=== PATIENT | male | born 1950 | race Caucasian/White ===

== ENCOUNTER → 2018-03-14 14:44 | Outpatient (CLI) | payer MEDICARE, OTHER, SELFPAY ==
--- NOTE | 2018-03-14 | DI.RAD.S_ITS ---
PROCEDURE: XR CHEST 2V INDICATIONS: LUNG NODULE TECHNIQUE: 2 views of the chest were acquired. COMPARISON: [facility], CHEST 1 VIEW, 05/26/2016, 15:01. [facility], CHEST 2 VIEW, 05/04/2017, 9:26. [facility], CHEST 2 VIEW, 11/11/2016, 9:08. [facility], CHEST 1 VIEW, 06/25/2016, 9:39. FINDINGS: Surgical changes and devices: Stable time. Lungs and pleura: No pleural effusions or pneumothorax. Lungs are clear. Mediastinum: Mediastinal contours are normal. Heart size is normal. Bones and chest wall: No suspicious bony abnormalities. Soft tissues appear unremarkable. IMPRESSION: No nodule identified on the left. Right upper lobe nodule seen on the right present also 05/26/16, stable appearing. Dictated by: Brooks Bejarano M.D. on 03/14/2018 at 15:05 Approved by: Brooks Bejarano M.D. on 03/14/2018 at 15:06
== END ==
PROVIDERS: Family Provider Family Medicine; PCP Family Medicine; Visit Provider Family Medicine
DX: R91.1 Solitary pulmonary nodule (principal)
CPT/HCPCS: 71046

== ENCOUNTER 2018-08-02 06:32 | Day surgery (SDC) | payer MEDICARE, OTHER, SELFPAY ==
[2018-08-02] VITALS (10 sets, daily range): BP systolic 99–156; BP diastolic 54–91; PULSE 59–76; RESP 12–18; TEMP 36.1–36.6; O2SAT 94–100; BMI 29.0
[2018-08-02] MEDS: LACTATED RINGERS 1,000 ML 42 ML IV ×2 (07:39→09:26)
--- NOTE | 2018-08-02 08:09 | PM.HP.1 ---
History of Present Illness Date Patient Seen: 08/02/18 Time Patient Seen: 08:00 Chief complaint: [id number] Narrative: Patient is gentleman here for repair of left inguinal hernia. He has local symptoms. Patient History Medical History Coronary heart disease (Chronic) Elevated cholesterol (Chronic) Hypertension (Chronic) History of herniated intervertebral disc (Resolved) Surgical History History of heart artery stent (Resolved) Status post aorto-coronary artery bypass graft (Resolved) Social History marital status: household members: spouse occupational status: employed Smoking Status: Never smoker alcohol intake: current substance use type: does not use Family & Social History Social History: household members spouse Tobacco & Substance use: Smoking Status Never smoker alcohol intake current Meds Home Medications Medication Instructions Recorded Confirmed Type aspirin 81 mg PO QDAY #0 05/26/16 08/02/18 History MULTIVITAMIN/MINERALS (ICAPS PLUS) 1 tab PO QDAY #0 06/25/16 03/21/18 History atorvastatin [Lipitor] 40 mg PO QDAY #0 06/25/16 08/02/18 History oxycodone-acetaminophen [Percocet] 1 - 2 tab PO Q4HP PRN #0 06/25/16 History polyethylene glycol 3350 [Miralax] 17 gm PO QDAYP PRN #0 06/25/16 History lisinopril 10 mg tablet 5 mg PO BID #0 tab 03/21/18 08/02/18 History metoprolol tartrate 25 mg tablet 50 mg PO BID #0 tab 03/21/18 08/02/18 History Allergies Allergy/AdvReac Type Severity Reaction Status Date / Time latex AdvReac itching, Verified 03/21/18 10: redness No Known Allergies Allergy Uncoded 03/21/18 10:08 Review of Systems Review of Systems Patient denies any chest pain or her problems recently. His treated for hypertension. No breathing issues. No black or bloody bowel movements. No seizures or blackouts. Exam Vital Signs (past 8 hours): - 08/02/18 07:22 Temperature 97.7 F Pulse Rate 76 Respiratory Rate 16 Blood Pressure 156/82 H Pulse Oximetry 100 Oxygen Delivery Method Room Air Narrative Exam Narrative: Operative no apparent distress. Lungs are clear to auscultation. Heart regular rate and rhythm without murmur gallop. Abdomen is soft nontender without masses. Reducible left inguinal hernia. He states that he has had repair in the side but I cannot see a scar. Assessment & Plan Assessment & Plan narrative: Patient with a left inguinal hernia that may be recurrence. I discussed the operation with him including risks of the use of mesh. He appears to understand and wishes to proceed
[2018-08-02] MEDS: CEFAZOLIN 2 GM/100 ML FROZ.PIGGY IV (08:10)
--- NOTE | 2018-08-02 08:12 | PM.PREOP ---
Pre-operative Note Interval Note History & Physical reviewed/Exam performed by Physician: Yes Changes to H&P: No
--- NOTE | 2018-08-02 08:29 | SUR.OPER ---
Supine on padded OR bed, head on pillow, arms secured on padded arm boards at <90 degrees abduction, legs uncrossed, safety belt at thigh, tape over blanket over lower legs.
[2018-08-02] MEDS: BUPIVACAINE 0.5% (PF) VIAL 30 ML INJ (08:35)
--- NOTE | 2018-08-02 10:30 | P.OP_ITS ---
Operative Date/Time/Diagnoses Date of procedure: 08/02/18 Time of procedure: 10:09 Pre-op diagnosis: Left inguinal hernia reducible Post-op diagnosis: same (Direct and large indirect component) Procedure & Clinicians Procedure: Repair with plug and patch technique Same procedure as scheduled: Yes Indications: Symptomatic left inguinal hernia Surgeon: Jr Murray Click Yes if Unassisted: Yes Anesthesia Type: General Operative Notes Findings: The patient was placed supine on the operating room table and underwent general LMA anesthesia. He was prepped and draped in the usual fashion. A transverse incision was made overlying the internal ring and carried down to the level of the external oblique. The external oblique was opened parallel with its fibers through the external ring. The cord structures were attempted to be elevated. The large contents within the hernia made this a difficult maneuver and I decided to open the cremaster and reduce the hernia contents 1st. The cremaster was opened proximally and search made for an indirect sac. The very large sac was identified and I opened it anteriorly. The sac contained a large amount of colon which I reduced. I then the sac from the cord structures. This was a very challenging maneuver due to the fact that there was a large amount of fat within the wall of the hernia medially. I dissected this off the peritoneal lining and used a 2 0 pursestring of silk to close the defect. I transected the sac distal and over sewed the end with the same 2 0 silk. The stump was allowed to retract. A large plug was then placed in the defect and this reduced not only the stump of the hernia but also the fat that had been in the wall. I tacked it into place with interrupted 0 Tycron sutures. The cremaster was closed with interrupted 3 0 Vicryl.. The floor was examined and was found to be attenuated. I decided to reinforce it by suturing medial transversalis to the ileopubic tract and edge of the inguinal ligament. T his was done with [id number] 0 Tycron sutures. A patch was placed across the floor and tacked at the pubic tubercle, the posterior lamella of the anterior rectus sheath, the ilioinguinal ligament, and superior lateral to the cord. The opening was modified as necessary to prevent tight constriction of the cord. Sutures of 0 Tycron were used to secure the mesh. The external oblique was closed with a running 3 0 Polysorb. The subcu was closed with interrupted 3 0 Polysorb. The skin was closed with a running 4 0 Polysorb subcuticular stitch and Steri-Strips. Dressing was applied, the patient was awakened, and the patient was taken to the recovery area in good condition. Closure Type: primary Specimen(s): none sent Prosthetic devices, grafts, tissues, transplants, or devices: Mesh Estimated Blood Loss (mL): 10 Procedure in detail: See findings above. Dictation placed there. Complications: none Condition: stable Disposition: PACU Plan for aftercare: Follow-up in the office
== END 2018-08-02 11:30 | disposition home or self-care (01) ==
PROVIDERS: Family Provider Family Medicine; PCP Family Medicine; Visit Provider Specialist
PROC: (CPT 49505; principal; 2018-08-02 07:45)
DX: K40.90 Unilateral inguinal hernia, without obstruction or gangrene, not specified as recurrent (principal); I25.10 Atherosclerotic heart disease of native coronary artery without angina pectoris; E78.00 Pure hypercholesterolemia, unspecified; I10 Essential (primary) hypertension; Z95.1 Presence of aortocoronary bypass graft
CPT/HCPCS: 49505; C1781; J0690; J1100; J2250; J2405; J2704; J3010

== ENCOUNTER 2019-08-14 16:28 | Observation (INO) | payer MEDICARE, OTHER, SELFPAY ==
[2019-08-14] VITALS (8 sets, daily range): BP systolic 137–161; BP diastolic 75–90; PULSE 68–79; RESP 15–17; TEMP 36–36.4; O2SAT 96–100; BMI 29.7
--- NOTE | 2019-08-14 16:46 | ED.NEUROSD ---
HPI - Neuro Symptoms/Deficit <Aydee Felder MD - Last Filed: 08/16/19 03:13> General Chief Complaint: Neuro Symptoms/Deficit Stated Complaint: thinks he had a mini stroke Time Seen by Provider: 08/14/19 16:46 Mode of arrival: Ambulatory History of Present Illness HPI Narrative: 69-year-old gentleman with a history of cardiac bypass and stent the following year, hypertension hyperlipidemia who presents after a 15 minutes episode this afternoon where he was acutely confused with word-finding difficulties. He notes that 230 this afternoon he was completely normal he distinctly remember signing a check. His noted that he was taking a nap in front of his computer at about 3:00 a.m. in at 3:30 a.m. she awoke him from the nap and he was dramatically confused, did not recognize her at all with word salad type findings that took approximately 15 minutes to resolve. Both the patient and his identified this as significantly abnormal and far more than one would expect even if being awoken from a deep sleep. There was no associated motor or sensory findings with this. No description of seizure-like activity. He does note that he has been more tired over the last couple of days, he was at a conference and was surprised that he could not walk quite as fast is many of the other people at the meeting, but attributed that to travel and fatigue. Since coming home 3 days ago he feels that he has been at his baseline without fever, cough, cold, chills, chest pain lower extremity edema, orthopnea, vomiting or diarrhea. On Anticoagulants: No Related Data Home Medications Medication Instructions Recorded Confirmed MULTIVITAMIN/MINERALS (ICAPS PLUS) 1 tab PO QDAY #0 06/25/16 08/15/19 atorvastatin [Lipitor] 40 mg PO DAILY #0 06/25/16 08/14/19 polyethylene glycol 3350 [Miralax] 17 gm PO QDAYP PRN #0 06/25/16 08/15/19 lisinopril 10 mg tablet 10 mg PO BID #0 tab 03/21/18 08/14/19 metoprolol succinate 50 mg PO BID 08/14/19 08/14/19 nitroglycerin 0.4 mg SUBLINGUAL PRN PRN 08/14/19 08/14/19 Previous Rx's Medication Instructions Recorded aspirin 81 mg PO QDAY #2 tab 08/15/19 Allergies Allergy/AdvReac Type Severity Reaction Status Date / Time No Known Drug Intolerances Allergy Verified 08/14/19 20:51 latex AdvReac itching, Verified 08/14/19 20:51 redness Review of Systems <Aydee Felder MD - Last Filed: 08/16/19 03:13> Review of Systems Narrative: All systems reviewed and are unremarkable except as noted in HPI and below Patient History <Aydee Felder MD - Last Filed: 08/16/19 03:13> Medical History Coronary heart disease (Chronic) Elevated cholesterol (Chronic) History of herniated intervertebral disc (Resolved) Hypertension (Chronic) Surgical History History of heart artery stent (Resolved) Status post aorto-coronary artery bypass graft (Resolved) Social History marital status: household members: spouse occupational status: employed Smoking Status: Never smoker alcohol intake: current substance use type: does not use Smoking Status: Never smoker alcohol intake frequency: 0-2 drinks per day Alcohol type: beer Substance Use Type: does not use Exam <Aydee Felder MD - Last Filed: 08/16/19 03:13> Narrative Exam Narrative: General: Healthy appearing, in no acute distress. Able to give a complete and coherent history. Well-nourished well-developed HEENT: Moist mucous membranes, normal sclera with reactive pupils, Neck: No JVD, supple Respiratory: Lungs are clear to auscultation, no wheezing no rales no rhonchi. Full and symmetrical air movement Cardiac: Regular rate and rhythm no murmurs no bruits Abdomen: Soft nontender good bowel tones, no flank pain Skin: Warm and dry, no rashes Neurologic: Grossly neurologically intact with no obvious asymmetries or abnormalities, speech fluency in cognitive interaction is completely appropriate Extremities: No trauma, well perfused Psych: Cooperative, appropriate insight and affect Initial Vital Signs Initial Vital Signs: Vital Signs Temperature 96.8 F L 08/14/19 16:32 Pulse Rate 70 08/14/19 16:32 Respiratory Rate 17 08/14/19 16:32 Blood Pressure 161/80 H 08/14/19 16:32 Pulse Oximetry 100 08/14/19 16:32 <Peg Horan DO - Last Filed: 08/15/19 03:43> Initial Vital Signs Initial Vital Signs: Vital Signs Temperature 96.8 F L 08/14/19 16:32 Pulse Rate 70 08/14/19 16:32 Respiratory Rate 17 08/14/19 16:32 Blood Pressure 161/80 H 08/14/19 16:32 Pulse Oximetry 100 08/14/19 16:32 Course <Aydee Felder MD - Last Filed: 08/16/19 03:13> Orders Ordered: Discontinued Medications Acetaminophen (Tylenol) 650 mg PO Q6HR PRN PRN Reason: Fever/Mild Pain (1-3) Aspirin (Aspirin Chew) 324 mg PO NOW ONE Stop: 08/14/19 20:06 Last Admin: 08/14/19 20:59 Dose: 324 mg Documented by: JAZ Atorvastatin Calcium (Lipitor) 40 mg PO NOW ONE Stop: 08/14/19 20:06 Last Admin: 08/14/19 20:59 Dose: 40 mg Documented by: JAZ Sodium Chloride (Normal Saline 0.9%) 1,000 mls @ 150 mls/hr IV CONT [facility] Last Admin: 08/15/19 05:23 Dose: 150 mls/hr Documented by: Infusion: 08/15/19 05:23 Dose: 150 mls/hr Documented by: Admin: 08/14/19 22:42 Dose: 150 mls/hr Documented by: ELLYN Sodium Chloride (Normal Saline 0.9%) 1,000 mls @ 1,000 mls/hr IV BOLUS ONE Stop: 08/14/19 18:21 Last Infusion: 08/14/19 19:46 Dose: 0 mls/hr Documented by: Admin: 08/14/19 17:54 Dose: 1,000 mls/hr Documented by: MORELIA Lisinopril (Zestril) 10 mg PO BID [facility] Last Admin: 08/15/19 09:49 Dose: 10 mg Documented by: Admin: 08/14/19 21:02 Dose: 10 mg Documented by: JAZ Metoprolol Tartrate (Lopressor) 50 mg PO BID [facility] Last Admin: 08/15/19 09:49 Dose: 50 mg Documented by: Admin: 08/14/19 21:01 Dose: 50 mg Documented by: JAZ Vital Signs Vital signs: Vital Signs - 8 hr 08/14/19 20:30 Pulse Rate 71 Respiratory Rate 15 Pulse Oximetry 98 <Peg Horan, DO - Last Filed: 08/15/19 03:43> Orders Ordered: Discontinued Medications Acetaminophen (Tylenol) 650 mg PO Q6HR PRN PRN Reason: Fever/Mild Pain (1-3) Aspirin (Aspirin Chew) 324 mg PO NOW ONE Stop: 08/14/19 20:06 Last Admin: 08/14/19 20:59 Dose: 324 mg Documented by: JAZ Atorvastatin Calcium (Lipitor) 40 mg PO NOW ONE Stop: 08/14/19 20:06 Last Admin: 08/14/19 20:59 Dose: 40 mg Documented by: JAZ Sodium Chloride (Normal Saline 0.9%) 1,000 mls @ 150 mls/hr IV CONT [facility] Last Admin: 08/15/19 05:23 Dose: 150 mls/hr Documented by: Infusion: 08/15/19 05:23 Dose: 150 mls/hr Documented by: Admin: 08/14/19 22:42 Dose: 150 mls/hr Documented by: ELLYN Sodium Chloride (Normal Saline 0.9%) 1,000 mls @ 1,000 mls/hr IV BOLUS ONE Stop: 08/14/19 18:21 Last Infusion: 08/14/19 19:46 Dose: 0 mls/hr Documented by: Admin: 08/14/19 17:54 Dose: 1,000 mls/hr Documented by: MORELIA Lisinopril (Zestril) 10 mg PO BID [facility] Last Admin: 08/15/19 09:49 Dose: 10 mg Documented by: Admin: 08/14/19 21:02 Dose: 10 mg Documented by: JAZ Metoprolol Tartrate (Lopressor) 50 mg PO BID [facility] Last Admin: 08/15/19 09:49 Dose: 50 mg Documented by: Admin: 03/11/20 21:01 Dose: 50 mg Documented by: JAZ Vital Signs Vital signs: Vital Signs - 8 hr 08/14/19 20:30 Pulse Rate 71 Respiratory Rate 15 Pulse Oximetry 98 MDM - Neuro Symptoms/Deficit <Aydee Felder MD - Last Filed: 08/16/19 03:13> Medical Records Attestation: I reviewed the patient's medical records. Lab Data Attestation: I reviewed the patient's lab results. Result diagrams: 08/15/19 05:47 08/15/19 05:47 Labs: Lab Results 08/14/19 08/14/19 08/14/19 Range/Units 17:20 17:20 17:20 WBC 8.1 (4.5-11.0) X10^3/uL RBC 4.74 (4.5-5.9) X10^6/uL Hgb 16.2 (13.5-17.5) g/dL Hct 46.8 (41-53) % MCV 98.7 (80-100) fL MCH 34.2 H (26-34) PG MCHC 34.6 (30-36) % RDW 12.5 (11.6-14.8) % Plt Count 147 L (150-400) X10^3/uL Neut % (Auto) 70.2 (50-75) % Lymph % (Auto) 16.3 L (25-40) % [place] % (Auto) 11.0 (3-14) % Eos % (Auto) 2.0 (2-4) % Baso % (Auto) 0.5 (0-2) % Neut # (Auto) 5700 (8397-0717) /uL Lymph # (Auto) 1300 (2366-9782) /uL [place] # (Auto) 900 (0-900) /uL Eos # (Auto) 200 (0-450) /uL Baso # (Auto) 0 (0-100) /uL PT 11.8 (10.1-12.7) SECONDS INR 1.0 (0.9-1.3) APTT 32 (26.4-36.2) SECONDS Sodium 136 L (137-145) mmol/L Potassium 4.2 (3.4-5.1) mmol/L Chloride 99 (98-107) mmol/L Carbon Dioxide 28 (22-32) mmol/L BUN 13 (9-20) mg/dL Creatinine 0.77 (0.66-1.25) mg/dL Estimated GFR > 60.0 (>60) mL/min BUN/Creatinine Ratio 16.9 (6-22) Glucose 85 (80-110) mg/dL Calcium 9.2 (8.4-10.2) mg/dL Total Bilirubin 0.4 (0.2-1.3) mg/dL AST 38 (17-59) IU/L ALT 35 (<50) IU/L Alkaline Phosphatase 80 (38-126) U/L Total Creatine Kinase (55-170) U/L CK-MB (CK-2) (<2.37) ng/mL CK-MB (CK-2) Rel Index (1.5-5.0) % Troponin I (0.01-0.034) ng/mL Total Protein 7.7 (6.3-8.2) g/dL Albumin 4.5 (3.5-5.0) g/dL Globulin 3.2 (1.7-4.1) g/dL Albumin/Globulin Ratio 1.4 (1.0-2.8) /04/24 Range/Units 17:20 WBC (4.5-11.0) X10^3/uL RBC (4.5-5.9) X10^6/uL Hgb (13.5-17.5) g/dL Hct (41-53) % MCV (80-100) fL MCH (26-34) PG MCHC (30-36) % RDW (11.6-14.8) % Plt Count (150-400) X10^3/uL Neut % (Auto) (50-75) % Lymph % (Auto) (25-40) % [place] % (Auto) (3-14) % Eos % (Auto) (2-4) % Baso % (Auto) (0-2) % Neut # (Auto) (3323-5879) /uL Lymph # (Auto) (7197-7441) /uL [place] # (Auto) (0-900) /uL Eos # (Auto) (0-450) /uL Baso # (Auto) (0-100) /uL PT (10.1-12.7) SECONDS INR (0.9-1.3) APTT (26.4-36.2) SECONDS Sodium (137-145) mmol/L Potassium (3.4-5.1) mmol/L Chloride (98-107) mmol/L Carbon Dioxide (22-32) mmol/L BUN (9-20) mg/dL Creatinine (0.66-1.25) mg/dL Estimated GFR (>60) mL/min BUN/Creatinine Ratio (6-22) Glucose (80-110) mg/dL Calcium (8.4-10.2) mg/dL Total Bilirubin (0.2-1.3) mg/dL AST (17-59) IU/L ALT (<50) IU/L Alkaline Phosphatase (38-126) U/L Total Creatine Kinase 225 H (55-170) U/L CK-MB (CK-2) 5.16 H (<2.37) ng/mL CK-MB (CK-2) Rel Index 2.3 (1.5-5.0) % Troponin I < 0.012 (0.01-0.034) ng/mL Total Protein (6.3-8.2) g/dL Albumin (3.5-5.0) g/dL Globulin (1.7-4.1) g/dL Albumin/Globulin Ratio (1.0-2.8) ECG Data Attestation: I personally reviewed and interpreted this ECG as follows: Interpretation: Sinus rhythm at a rate of 72 Left anterior fascicular block Left axis deviation No acute ischemic changes MDM Narrative Medical decision making narrative: [address] No acute intracranial bleed MRI pending, in the absence of acute findings on MRI, I believe it is safe to say this 15 minutes episode of acute confusion is not secondary to a life-threatening etiology and the patient will be safe for discharge. Care is transferred to Dr. Horan for follow-up after MRI <Peg Horan, - Last Filed: 08/15/19 03:43> Lab Data Attestation: I reviewed the patient's lab results. Labs: Lab Results 08/14/19 08/14/19 08/14/19 Range/Units 17:20 17:20 17:20 WBC 8.1 (4.5-11.0) X10^3/uL RBC 4.74 (4.5-5.9) X10^6/uL Hgb 16.2 (13.5-17.5) g/dL Hct 46.8 (41-53) % MCV 98.7 (80-100) fL MCH 34.2 H (26-34) PG MCHC 34.6 (30-36) % RDW 12.5 (11.6-14.8) % Plt Count 147 L (150-400) X10^3/uL Neut % (Auto) 70.2 (50-75) % Lymph % (Auto) 16.3 L (25-40) % [place] % (Auto) 11.0 (3-14) % Eos % (Auto) 2.0 (2-4) % Baso % (Auto) 0.5 (0-2) % Neut # (Auto) 5700 (2663-4951) /uL Lymph # (Auto) 1300 (5419-8047) /uL [place] # (Auto) 900 (0-900) /uL Eos # (Auto) 200 (0-450) /uL Baso # (Auto) 0 (0-100) /uL PT 11.8 (10.1-12.7) SECONDS INR 1.0 (0.9-1.3) APTT 32 (26.4-36.2) SECONDS Sodium 136 L (137-145) mmol/L Potassium 4.2 (3.4-5.1) mmol/L Chloride 99 (98-107) mmol/L Carbon Dioxide 28 (22-32) mmol/L BUN 13 (9-20) mg/dL Creatinine 0.77 (0.66-1.25) mg/dL Estimated GFR > 60.0 (>60) mL/min BUN/Creatinine Ratio 16.9 (6-22) Glucose 85 (80-110) mg/dL Calcium 9.2 (8.4-10.2) mg/dL Total Bilirubin 0.4 (0.2-1.3) mg/dL AST 38 (17-59) IU/L ALT 35 (<50) IU/L Alkaline Phosphatase 80 (38-126) U/L Total Creatine Kinase (55-170) U/L CK-MB (CK-2) (<2.37) ng/mL CK-MB (CK-2) Rel Index (1.5-5.0) % Troponin I (0.01-0.034) ng/mL Total Protein 7.7 (6.3-8.2) g/dL Albumin 4.5 (3.5-5.0) g/dL Globulin 3.2 (1.7-4.1) g/dL Albumin/Globulin Ratio 1.4 (1.0-2.8) 08/14/19 Range/Units 17:20 WBC (4.5-11.0) X10^3/uL RBC (4.5-5.9) X10^6/uL Hgb (13.5-17.5) g/dL Hct (41-53) % MCV (80-100) fL MCH (26-34) PG MCHC (30-36) % RDW (11.6-14.8) % Plt Count (150-400) X10^3/uL Neut % (Auto) (50-75) % Lymph % (Auto) (25-40) % [place] % (Auto) (3-14) % Eos % (Auto) (2-4) % Baso % (Auto) (0-2) % Neut # (Auto) (5083-2316) /uL Lymph # (Auto) (9930-0374) /uL [place] # (Auto) (0-900) /uL Eos # (Auto) (0-450) /uL Baso # (Auto) (0-100) /uL PT (10.1-12.7) SECONDS INR (0.9-1.3) APTT (26.4-36.2) SECONDS Sodium (137-145) mmol/L Potassium (3.4-5.1) mmol/L Chloride (98-107) mmol/L Carbon Dioxide (22-32) mmol/L BUN (9-20) mg/dL Creatinine (0.66-1.25) mg/dL Estimated GFR (>60) mL/min BUN/Creatinine Ratio (6-22) Glucose (80-110) mg/dL Calcium (8.4-10.2) mg/dL Total Bilirubin (0.2-1.3) mg/dL AST (17-59) IU/L ALT (<50) IU/L Alkaline Phosphatase (38-126) U/L Total Creatine Kinase 225 H (55-170) U/L CK-MB (CK-2) 5.16 H (<2.37) ng/mL CK-MB (CK-2) Rel Index 2.3 (1.5-5.0) % Troponin I < 0.012 (0.01-0.034) ng/mL Total Protein (6.3-8.2) g/dL Albumin (3.5-5.0) g/dL Globulin (1.7-4.1) g/dL Albumin/Globulin Ratio (1.0-2.8) MDM Narrative Medical decision making narrative: For this is 69-year-old male who comes in who had TIA like symptoms. He was signed out to myself by Dr. Everett with the expectation of MRI this evening and if negative plan for DC home. Patient scheduling his not working and were unable to obtain MRI I spoke with Dr. Grajeda who accepts but would like a troponin included which on check is negative. Patient is asymptomatic at this time. Aspirin 324 mg was ordered. CBC and CMP for the a.m. as ordered as well as MRI and patient's home medications of atorvastatin, lisinopril and metoprolol were ordered for tonight and tomorrow morning. Patient and family are agreeable with this plan. Discharge Plan Departure Patient Disposition: Admitted as Observation Clinical Impression: TIA (transient ischemic attack) Discharge Date/Time: 08/14/19 21:38 Instructions: DI for Transient Ischemic Attack Referrals: Main Keyes MD [Primary Care Provider] - Admit Date/Time: 08/14/19 20:41 Admit Provider: Katerin Grajeda
--- NOTE | 2019-08-14 17:01 | DI.CT.S_ITS ---
PROCEDURE: CT STROKE INDICATIONS: TIA symptoms now resolved TECHNIQUE: Noncontrast 4.5 mm thick angled axial sections acquired from the foramen magnum to the vertex, with coronal reformats. For radiation dose reduction, the following was used: automated exposure control, adjustment of mA and/or kV according to patient size. COMPARISON: None. FINDINGS: Image quality: Excellent. CSF spaces: Basal cisterns are patent. No extra-axial fluid collections. The ventricles are symmetric in size and shape. Brain: No intracranial bleeds or masses. There is cerebral volume loss for age, with resultant ventricular and sulcal prominence. There are periventricular and deep white matter chronic small vessel ischemic changes. There is intracranial internal carotid artery atherosclerosis. Skull and face: Calvarium and visualized facial bones appear intact, without suspicious lesions. Sinuses: Visualized sinuses and mastoids are clear. IMPRESSION: 1. No CT evidence of acute intracranial pathology. 2. Age-appropriate atrophy and extensive periventricular white matter small vessel chronic ischemic changes. Findings were reported to Dr. Felder at 5:40 PM on 08/14/19. This study fulfills neurological imaging criteria for inclusion or exclusion of acute stroke therapies based on available published neurological guidelines. Dictated by: Christian Mark M.D. on 08/14/2019 at 17:38 Approved by: Christian Mark M.D. on 08/14/2019 at 17:40
--- NOTE | 2019-08-14 17:03 | DI.MRI.S_ITS ---
PROCEDURE: MR STROKE Pre- and post-contrast brain MRI, non-contrast brain MR angiogram, pre- and postcontrast neck MR angiogram INDICATIONS: TIA symptoms now resolved TECHNIQUE: Brain: Noncontrast axial T1 spin echo, axial T2 fast spin echo, sagittal and axial FLAIR, coronal T2 fast spin echo, axial gradient echo, axial diffusion and ADC through the brain. After the administration of contrast, axial 3D VIBE of the cranial vasculature and brain. Brain MRA: Non-contrast 3-D time of flight MR angiogram, with multiple asumxia-zwexnlfwi-cmmximmsbd (MIP) reformats performed. Neck MRA: Axial and sagittal TruFISP through the neck. Coronal dynamic MR angiogram during administration of contrast in the arterial and venous phases, with 3-dimenstional jtkwkfb-apudlzkta-aytfhmhciw (MIP) reformats constructed from subtraction images. COMPARISON: [facility], CT, CT STROKE, 08/14/2019, 17:22. FINDINGS: Image quality: Excellent. BRAIN: CSF spaces: Ventricles are normal in size and shape. Basal cisterns are patent. No extra-axial fluid collections. Brain: No intracranial bleeds or mass effects. Mario-white matter interface is normal. Diffusion weighted images show no acute ischemic insults. There is mild, diffuse triple volume loss. There are severe periventricular and subcortical white matter chronic microvascular ischemic changes. Brainstem appears normal. Normal intravascular flow voids are present. The dural sinuses demonstrate normal postcontrast enhancement. No abnormal intracranial enhancement. Skull and face: Calvarial marrow signal is normal. Orbits appear normal. Sinuses: Sinuses and mastoids are clear. BRAIN MR ANGIOGRAM: Anterior circulation: Intracranial internal carotid arteries are normal in size and enhancement. The flow within the paired anterior cerebral arteries is normal and symmetric. The flow within the middle cerebral arteries is normal and symmetric. The anterior communicating artery is seen. No stenoses, occlusions, or aneurysms. Posterior circulation: The visualized portions of the vertebral arteries demonstrate normal caliber, and join to form a normal appearing basilar artery. The flow within the posterior cerebral arteries is normal and symmetric. The left posterior cerebral artery has a origin which is a congenital anatomic variant or a No stenoses, occlusions, or aneurysms. NECK MR ANGIOGRAM: Carotids: Great vessels demonstrate a conventional anatomy as they arise from the aortic arch. The origins of the common carotid arteries appear patent. The calibers and courses of both common carotid arteries are normal. Irregularity noted in the origins of the internal carotid arteries bilaterally which causes less than 50% stenosis. Posterior circulation: Mild atherosclerotic irregularity causing mild stenosis of the origin of the right internal carotid artery. Atherosclerotic irregularity noted in the origin of the left vertebral artery which causes moderate to severe stenosis. More superior portions of both vertebral arteries demonstrate normal course and caliber, and join to form a normal appearing basilar artery. Miscellaneous: Subclavian arteries appear patent. Pre-contrast images through the neck show no soft tissue abnormalities. IMPRESSION: BRAIN MRI: 1. No acute intracranial disease process. 2. No areas of acute or chronic infarction. 3. No abnormal intracranial mass or suspicious postcontrast enhancement. 4. Mild diffuse cerebral volume loss. 5. Severe periventricular and subcortical white matter chronic microvascular ischemic change. BRAIN MR ANGIOGRAM: Negative examination. NECK MR ANGIOGRAM: 1. Less than 50% stenosis of the origins of the internal carotid arteries bilaterally. 2. Mild atherosclerotic stenosis of the origin of the right vertebral artery. 3. Moderate to severe atherosclerotic stenosis of the origin of the left vertebral artery Dictated by: Roberta Oakley MD, PhD on 08/15/2019 at 10:49 Approved by: Roberta Oakley MD, PhD on 08/15/2019 at 11:02
[2019-08-14 17:39] LABS: Prothrombin Time 11.8 SECONDS (10.1-12.7)
[2019-08-14 17:42] LABS: PTT Partial Thromboplastin Tim 32 SECONDS (26.4-36.2)
[2019-08-14 17:44] LABS: Add Manual Diff / Slide Review NO; Basophils Absolute Auto 0 /uL (0-100); Basophils Percent Auto 0.5 % (0-2); Eosinophils Absolute Auto 200 /uL (0-450); Hematocrit 46.8 % (41-53); Hemoglobin 16.2 g/dL (13.5-17.5); Lymphocytes Absolute Auto 1300 /uL (1100-4500); Lymphocytes Percent Auto 16.3 % (25-40); Mean Corpuscular HGB Conc 34.6 % (30-36); Mean Corpuscular Hemoglobin 34.2 PG (26-34); Mean Corpuscular Volume 98.7 fL (80-100); Monocytes Absolute Auto 900 /uL (0-900); Neutrophils Absolute Auto 5700 /uL (1500-7000); Neutrophils Percent Auto 70.2 % (50-75); Platelet Count 147 X10^3/uL (150-400); Red Blood Cell Count 4.74 X10^6/uL (4.5-5.9); Red Cell Distribution Width 12.5 % (11.6-14.8); White Blood Cell Count 8.1 X10^3/uL (4.5-11.0)
[2019-08-14 17:49] LABS: Alanine Aminotransferase 35 IU/L (<50); Albumin 4.5 g/dL (3.5-5.0); Albumin Globulin Ratio 1.4 (1.0-2.8); Alkaline Phosphatase 80 U/L (38-126); Aspartate Aminotransferase 38 IU/L (17-59); BUN Creatinine Ratio 16.9 (6-22); Bilirubin Total 0.4 mg/dL (0.2-1.3); Blood Urea Nitrogen 13 mg/dL (9-20); Calcium 9.2 mg/dL (8.4-10.2); Carbon Dioxide 28 mmol/L (22-32); Chloride 99 mmol/L (98-107); Estimated Glomerular Filt Rate > 60.0 mL/min (>60); Globulin 3.2 g/dL (1.7-4.1); Glucose 85 mg/dL (80-110); HEMOLYSIS < 15 (0-50); Potassium 4.2 mmol/L (3.4-5.1); Sodium 136 mmol/L (137-145); Total Protein 7.7 g/dL (6.3-8.2)
[2019-08-14] MEDS: SODIUM CHLORIDE 0.9% 1,000 ML 1000 ML IV (17:54)
--- NOTE | 2019-08-14 18:07 | PC.NURSE ---
Reports lapse in memory in the afternoon.
[2019-08-14 20:21] LABS: Creatine Kinase 225 U/L (55-170)
[2019-08-14 20:32] LABS: Troponin I < 0.012 ng/mL (0.01-0.034)
[2019-08-14 20:36] LABS: CKMB % Relative Index 2.3 % (1.5-5.0); Creatine Kinase MB 5.16 ng/mL (<2.37)
[2019-08-14] MEDS: ASPIRIN 81 MG CHEW TAB 324 MG PO (20:59)
[2019-08-14] MEDS: ATORVASTATIN 20 MG TABLET 40 MG PO (20:59)
[2019-08-14] MEDS: METOPROLOL IR 25 MG TABLET 50 MG PO (21:01)
[2019-08-14] MEDS: lisinopriL 10 MG TABLET PO (21:02)
[2019-08-14] MEDS: SODIUM CHLORIDE 0.9% 1,000 ML 150 ML IV (22:42)
[2019-08-15 00:10] VITALS: BP 124/64; PULSE 65; RESP 20; TEMP 36.7; O2SAT 95
[2019-08-15 04:25] VITALS: BP 125/56; PULSE 62; RESP 20; TEMP 36.7; O2SAT 97
[2019-08-15 04:54] LABS: UR Morphine/Opiate cutoff 300 Negative (Negative); Ur Creatinine Normal (Normal); Ur Specific Gravity Normal (Normal); Urine Amphetamines Negative (Negative); Urine Barbiturates Negative (Negative); Urine Benzodiazepines Negative (Negative); Urine Cocaine Negative (Negative); Urine MDMA Negative (Negative); Urine Methadone Negative (Negative); Urine Methamphetamines Negative (Negative); Urine Oxycodone Negative (Negative); Urine Phencyclidine Negative (Negative); Urine Tetrahydrocannabinol Negative (Negative); Urine Tricyclic Antidepressant Negative (Negative); Urine pH Normal (Normal)
--- NOTE | 2019-08-15 05:16 | PC.NURSE ---
Pt is AxOx3 NIH=0 Kept NPO per order. Tele: NSR, 1st AVB; denies chest pain Urine sent to lab; Tox screen done NS@150mL/hr
[2019-08-15] MEDS: SODIUM CHLORIDE 0.9% 1,000 ML 150 ML IV (05:23)
[2019-08-15 06:10] LABS: Add Manual Diff / Slide Review NO; Basophils Absolute Auto 0 /uL (0-100); Basophils Percent Auto 0.5 % (0-2); Eosinophils Absolute Auto 200 /uL (0-450); Eosinophils Percent Auto 2.8 % (2-4); Hematocrit 45.7 % (41-53); Hemoglobin 15.6 g/dL (13.5-17.5); Lymphocytes Absolute Auto 1000 /uL (1100-4500); Lymphocytes Percent Auto 15.9 % (25-40); Mean Corpuscular HGB Conc 34.2 % (30-36); Mean Corpuscular Hemoglobin 33.9 PG (26-34); Mean Corpuscular Volume 99.1 fL (80-100); Monocytes Absolute Auto 800 /uL (0-900); Neutrophils Absolute Auto 4400 /uL (1500-7000); Neutrophils Percent Auto 68.8 % (50-75); Platelet Count 119 X10^3/uL (150-400); Red Blood Cell Count 4.61 X10^6/uL (4.5-5.9); Red Cell Distribution Width 12.5 % (11.6-14.8); White Blood Cell Count 6.5 X10^3/uL (4.5-11.0)
[2019-08-15 06:41] LABS: Alanine Aminotransferase 29 IU/L (<50); Albumin 3.7 g/dL (3.5-5.0); Albumin Globulin Ratio 1.3 (1.0-2.8); Alkaline Phosphatase 64 U/L (38-126); Aspartate Aminotransferase 33 IU/L (17-59); BUN Creatinine Ratio 14.5 (6-22); Bilirubin Total 0.7 mg/dL (0.2-1.3); Blood Urea Nitrogen 11 mg/dL (9-20); Calcium 8.8 mg/dL (8.4-10.2); Carbon Dioxide 26 mmol/L (22-32); Chloride 105 mmol/L (98-107); Estimated Glomerular Filt Rate > 60.0 mL/min (>60); Globulin 2.9 g/dL (1.7-4.1); Glucose 102 mg/dL (80-110); HEMOLYSIS < 15 (0-50); Potassium 4.5 mmol/L (3.4-5.1); Sodium 137 mmol/L (137-145); Total Protein 6.6 g/dL (6.3-8.2)
[2019-08-15 07:36] VITALS: BP 137/71; PULSE 64; RESP 16; TEMP 36.4; O2SAT 96
--- NOTE | 2019-08-15 08:52 | P.HP_ITS ---
History of Present Illness History of Present Illness Date Patient Seen: 08/15/19 Time Patient Seen: 08:14 Chief complaint: thinks he had a mini stroke Narrative: Patient with history of coronary artery disease stents and place and past history of anti coagulation not current was is self about 230 yesterday afternoon about 3:00 a.m. found him napping at his computer and when he was roused he had garbled speech and not thinking clearly focal motor abnormality. This went on for 10-15 minutes no trouble swallowing breathing chest pain headache or vision change. Patient History Medical History Coronary heart disease (Chronic) Elevated cholesterol (Chronic) History of herniated intervertebral disc (Resolved) Hypertension (Chronic) Surgical History History of heart artery stent (Resolved) Status post aorto-coronary artery bypass graft (Resolved) Family & Social History Social History: household members spouse Prior Living Arrangements House Safety & Behavioral: Feels Safe in Current Yes Environment Been Physically Hurt or No Threatened By a Person Suicidal Ideation Description None Suicide Plan Description No Plan Tobacco & Substance use: Smoking Status Never smoker alcohol intake current alcohol intake frequency 0-2 drinks per day Substance Use Type does not use Meds Home Medications and Allergies Home Medications Medication Instructions Recorded Confirmed Type aspirin 81 mg PO QDAY #0 05/26/16 08/15/19 History MULTIVITAMIN/MINERALS (ICAPS PLUS) 1 tab PO QDAY #0 06/25/16 08/15/19 History atorvastatin [Lipitor] 40 mg PO DAILY #0 06/25/16 08/14/19 History polyethylene glycol 3350 [Miralax] 17 gm PO QDAYP PRN #0 06/25/16 08/15/19 History lisinopril 10 mg tablet 10 mg PO BID #0 tab 03/21/18 08/14/19 History oxycodone-acetaminophen [Percocet] See Rx Instructions .ROUTE 08/02/18 08/15/19 Rx .COMPLEX PRN #14 tab metoprolol succinate 50 mg PO BID 08/14/19 08/14/19 History nitroglycerin 0.4 mg SUBLINGUAL PRN PRN 08/14/19 08/14/19 History Allergies Allergy/AdvReac Type Severity Reaction Status Date / Time No Known Drug Intolerances Allergy Verified 08/14/19 20:51 latex AdvReac itching, Verified 08/14/19 20:51 redness Review of Systems Review of Systems Narrative: You systems reviewed with patient house and negative except as above Exam Vital Signs (past 8 hours): - 08/15/19 04:25 Temperature 98.0 F Pulse Rate 62 Respiratory Rate 20 Blood Pressure 125/56 L Pulse Oximetry 97 Oxygen Delivery Method Room Air Oxygen Flow Rate 0 Narrative Exam Narrative: Sitting comfortably in bed alert speaking clearly normal and intact neurologic. PERRLA EOMs intact Lungs clear Cardiovascular exam regular rate and rhythm no murmur Abdomen nontender Motor symmetrical with full strength sensory intact and symmetrical and speech clear Skin without lesions Objective Labs Result Diagrams: 08/15/19 05:47 08/15/19 05:47 Labs: Laboratory Results - last 24 hr 08/14/19 08/14/19 08/14/19 17:20 17:20 17:20 WBC 8.1 RBC 4.74 Hgb 16.2 Hct 46.8 MCV 98.7 MCH 34.2 H MCHC 34.6 RDW 12.5 Plt Count 147 L Neut % (Auto) 70.2 Lymph % (Auto) 16.3 L [place] % (Auto) 11.0 Eos % (Auto) 2.0 Baso % (Auto) 0.5 Neut # (Auto) 5700 Lymph # (Auto) 1300 [place] # (Auto) 900 Eos # (Auto) 200 Baso # (Auto) 0 PT 11.8 INR 1.0 APTT 32 Sodium 136 L Potassium 4.2 Chloride 99 Carbon Dioxide 28 BUN 13 Creatinine 0.77 Estimated GFR > 60.0 BUN/Creatinine Ratio 16.9 Glucose 85 Calcium 9.2 Total Bilirubin 0.4 AST 38 ALT 35 Alkaline Phosphatase 80 Total Creatine Kinase CK-MB (CK-2) CK-MB (CK-2) Rel Index Troponin I Total Protein 7.7 Albumin 4.5 Globulin 3.2 Albumin/Globulin Ratio 1.4 U Opiates 300ng/mL cut Ur Oxycodone Screen Urine Methadone Screen Ur Barbiturates Screen U Tricyclic Antidepress Ur Phencyclidine Scrn Ur Amphetamines Screen U Methamphetamines Scrn Ur MDMA Scrn (Ecstasy) U Benzodiazepines Scrn Urine Cocaine Screen U Marijuana (THC) Screen 08/14/19 08/15/1920 17:20 04:35 05:47 WBC 6.5 RBC 4.61 Hgb 15.6 Hct 45.7 MCV 99.1 MCH 33.9 MCHC 34.2 RDW 12.5 Plt Count 119 L Neut % (Auto) 68.8 Lymph % (Auto) 15.9 L [place] % (Auto) 12.0 Eos % (Auto) 2.8 Baso % (Auto) 0.5 Neut # (Auto) 4400 Lymph # (Auto) 1000 L [place] # (Auto) 800 Eos # (Auto) 200 Baso # (Auto) 0 PT INR APTT Sodium Potassium Chloride Carbon Dioxide BUN Creatinine Estimated GFR BUN/Creatinine Ratio Glucose Calcium Total Bilirubin AST ALT Alkaline Phosphatase Total Creatine Kinase 225 H CK-MB (CK-2) 5.16 H CK-MB (CK-2) Rel Index 2.3 Troponin I < 0.012 Total Protein Albumin Globulin Albumin/Globulin Ratio U Opiates 300ng/mL cut Negative Ur Oxycodone Screen Negative Urine Methadone Screen Negative Ur Barbiturates Screen Negative U Tricyclic Antidepress Negative Ur Phencyclidine Scrn Negative Ur Amphetamines Screen Negative U Methamphetamines Scrn Negative Ur MDMA Scrn (Ecstasy) Negative U Benzodiazepines Scrn Negative Urine Cocaine Screen Negative U Marijuana (THC) Screen Negative 08/15/19 05:47 WBC RBC Hgb Hct MCV MCH MCHC RDW Plt Count Neut % (Auto) Lymph % (Auto) [place] % (Auto) Eos % (Auto) Baso % (Auto) Neut # (Auto) Lymph # (Auto) [place] # (Auto) Eos # (Auto) Baso # (Auto) PT INR APTT Sodium 137 Potassium 4.5 Chloride 105 Carbon Dioxide 26 BUN 11 Creatinine 0.76 Estimated GFR > 60.0 BUN/Creatinine Ratio 14.5 Glucose 102 Calcium 8.8 Total Bilirubin 0.7 AST 33 ALT 29 Alkaline Phosphatase 64 Total Creatine Kinase CK-MB (CK-2) CK-MB (CK-2) Rel Index Troponin I Total Protein 6.6 Albumin 3.7 Globulin 2.9 Albumin/Globulin Ratio 1.3 U Opiates 300ng/mL cut Ur Oxycodone Screen Urine Methadone Screen Ur Barbiturates Screen U Tricyclic Antidepress Ur Phencyclidine Scrn Ur Amphetamines Screen U Methamphetamines Scrn Ur MDMA Scrn (Ecstasy) U Benzodiazepines Scrn Urine Cocaine Screen U Marijuana (THC) Screen Assessment & Plan Assessment & Plan narrative: Assessment 1. TIA like event. Resolved in 15 minutes no residual. Negative CT scan and evaluation in ER with exception of no MRI but was able to be scheduled last night CT scan was without any acute event. MRI scheduled for today at approximately 11:00 a.m. will review that and if negative discharge patient. Assessment 2 ASCVD patient with history of stent placement and chest pain episodes in the past none in the last couple of years. Not on anticoagulation other than aspirin has hypertensive and cholesterol control medications on board. Had a mild elevation of his CPK but negative troponin through ER evaluation last night. If the patient has normal MRI is discharged will probably have him take 2 baby aspirins today at the same time rather than just 1. Assessment 3. Hypertension patient's blood pressure in good control no shortness of breath hypoxia fever chills cough or edema. Will continue with his current medications post discharge Assessment 4. Hyperlipidemia. Patient tolerates atorvastatin has had good lab values. Stay on same medications following discharge. Quality VTE Deep Vein Thrombosis/Pulmonary Embolism Present on Admission: No
[2019-08-15] MEDS: lisinopriL 10 MG TABLET PO (09:49)
[2019-08-15] MEDS: METOPROLOL IR 25 MG TABLET 50 MG PO (09:49)
--- NOTE | 2019-08-15 11:10 | CM.DANOTE ---
DCP Assessment: EMR reviewed: Patient is a 69 yr old male who was admitted for possible stroke. Patients PCP is Dr. Keyes. CM/RN met with patient and patients at the bedside and explained role. Patient currently lives in a single level home with a couple of stairs going into the home. Patient lives with his and is Independent with all ADL's and Drives at baseline. Patient is waiting for an MRI today. During AM rounds Dr. Payton stated that if MRI comes back Okay that patient will most likely D/C this afternoon. Patient updated and stated understanding. I: [facility] and [facility]. P: D/C home with when medically stable. No identified D/C planning needs noted at this time. Cm department will continue to follow patient for any new D/C planning needs that may arise. Helen Kyle RN Discharge Planning/Care Management CM Discharge Assessment Start: 08/15/19 11:08 Freq: Status: Active Protocol: Document 08/15/19 11:08 HS (Rec: 08/15/19 11:10 [id number]) Discharge Planning Assessment Assigned Earthmoving Labourer Helen Kyle RN DPOA/Assigned Designee Name Deanne Weldon (spouse) Contact Information [phone] Advance Directives? No History Provided By Patient,Medical Record Has Patient been admitted in last 30 No days? Prior Living Arrangements House Household Members spouse Type of transporation used prior to Drives own vehicle admit Independent with ADL's Yes Is patient alert and oriented? Yes Caregiver for Another No DME Already Rented / Owned Cane Barriers to Discharge No Discharge Plan Home Referrals Initiated None needed Whiteboard Updated in Patient Room with Yes name and ext. # of Earthmoving Labourer Review Status In Process Next Review Type Continued Stay Review
--- NOTE | 2019-08-15 12:37 | P.DS_ITS ---
History of Present Illness History of Present Illness Date Patient Seen: 08/15/19 Time Patient Seen: 12:04 Chief complaint: thinks he had a mini stroke Narrative: Patient with history of coronary artery disease stents and place and past history of anti coagulation not current was is self about 230 yesterday afternoon about 3:00 a.m. found him napping at his computer and when he was roused he had garbled speech and not thinking clearly focal motor abnormality. This went on for 10-15 minutes no trouble swallowing breathing chest pain headache or vision change. Discharge Providers Provider Date of admission: 08/14/19 20:41 Discharge Date: 08/15/19 Primary care physician: Main Keyes MD Discharge provider: Main Keyes MD Exam Vital Signs (past 8 hours): - 08/15/19 07:36 Temperature 97.6 F Pulse Rate 64 Respiratory Rate 16 Blood Pressure 137/71 Pulse Oximetry 96 Oxygen Delivery Method Room Air Oxygen Flow Rate 0 Narrative Exam Narrative: Alert oriented x3 speech clear PERRLA EOMs intact Neck without mass or bruit Lungs clear Heart shows regular rate rhythm without murmur S3 Abdomen nontender no mass no hepatosplenomegaly No significant dependent edema Skin without skin lesions Neuro shows sensory motor intact cranial nerves intact speech clear Objective Labs Result Diagrams: 08/15/19 05:47 08/15/19 05:47 Labs: Laboratory Results - last 24 hr 08/14/19 08/14/19 08/14/19 17:20 17:20 17:20 WBC 8.1 RBC 4.74 Hgb 16.2 Hct 46.8 MCV 98.7 MCH 34.2 H MCHC 34.6 RDW 12.5 Plt Count 147 L Neut % (Auto) 70.2 Lymph % (Auto) 16.3 L [place] % (Auto) 11.0 Eos % (Auto) 2.0 Baso % (Auto) 0.5 Neut # (Auto) 5700 Lymph # (Auto) 1300 [place] # (Auto) 900 Eos # (Auto) 200 Baso # (Auto) 0 PT 11.8 INR 1.0 APTT 32 Sodium 136 L Potassium 4.2 Chloride 99 Carbon Dioxide 28 BUN 13 Creatinine 0.77 Estimated GFR > 60.0 BUN/Creatinine Ratio 16.9 Glucose 85 Calcium 9.2 Total Bilirubin 0.4 AST 38 ALT 35 Alkaline Phosphatase 80 Total Creatine Kinase CK-MB (CK-2) CK-MB (CK-2) Rel Index Troponin I Total Protein 7.7 Albumin 4.5 Globulin 3.2 Albumin/Globulin Ratio 1.4 U Opiates 300ng/mL cut Ur Oxycodone Screen Urine Methadone Screen Ur Barbiturates Screen U Tricyclic Antidepress Ur Phencyclidine Scrn Ur Amphetamines Screen U Methamphetamines Scrn Ur MDMA Scrn (Ecstasy) U Benzodiazepines Scrn Urine Cocaine Screen U Marijuana (THC) Screen 08/14/19 08/15/19 08/15/19 17:20 04:35 05:47 WBC 6.5 RBC 4.61 Hgb 15.6 Hct 45.7 MCV 99.1 MCH 33.9 MCHC 34.2 RDW 12.5 Plt Count 119 L Neut % (Auto) 68.8 Lymph % (Auto) 15.9 L [place] % (Auto) 12.0 Eos % (Auto) 2.8 Baso % (Auto) 0.5 Neut # (Auto) 4400 Lymph # (Auto) 1000 L [place] # (Auto) 800 Eos # (Auto) 200 Baso # (Auto) 0 PT INR APTT Sodium Potassium Chloride Carbon Dioxide BUN Creatinine Estimated GFR BUN/Creatinine Ratio Glucose Calcium Total Bilirubin AST ALT Alkaline Phosphatase Total Creatine Kinase 225 H CK-MB (CK-2) 5.16 H CK-MB (CK-2) Rel Index 2.3 Troponin I < 0.012 Total Protein Albumin Globulin Albumin/Globulin Ratio U Opiates 300ng/mL cut Negative Ur Oxycodone Screen Negative Urine Methadone Screen Negative Ur Barbiturates Screen Negative U Tricyclic Antidepress Negative Ur Phencyclidine Scrn Negative Ur Amphetamines Screen Negative U Methamphetamines Scrn Negative Ur MDMA Scrn (Ecstasy) Negative U Benzodiazepines Scrn Negative Urine Cocaine Screen Negative U Marijuana (THC) Screen Negative 08/15/19 05:47 WBC RBC Hgb Hct MCV MCH MCHC RDW Plt Count Neut % (Auto) Lymph % (Auto) [place] % (Auto) Eos % (Auto) Baso % (Auto) Neut # (Auto) Lymph # (Auto) [place] # (Auto) Eos # (Auto) Baso # (Auto) PT INR APTT Sodium 137 Potassium 4.5 Chloride 105 Carbon Dioxide 26 BUN 11 Creatinine 0.76 Estimated GFR > 60.0 BUN/Creatinine Ratio 14.5 Glucose 102 Calcium 8.8 Total Bilirubin 0.7 AST 33 ALT 29 Alkaline Phosphatase 64 Total Creatine Kinase CK-MB (CK-2) CK-MB (CK-2) Rel Index Troponin I Total Protein 6.6 Albumin 3.7 Globulin 2.9 Albumin/Globulin Ratio 1.3 U Opiates 300ng/mL cut Ur Oxycodone Screen Urine Methadone Screen Ur Barbiturates Screen U Tricyclic Antidepress Ur Phencyclidine Scrn Ur Amphetamines Screen U Methamphetamines Scrn Ur MDMA Scrn (Ecstasy) U Benzodiazepines Scrn Urine Cocaine Screen U Marijuana (THC) Screen Discharge Plan Discharge Plan Patient Disposition: Home Discharge comment: follow up in 1 week Discharge orders & Medications Prescriptions: Continued atorvastatin [Lipitor] 40 MG tablet 40 mg PO DAILY Qty: 0 RF: 0 MULTIVITAMIN/MINERALS (ICAPS PLUS) 1 tab PO QDAY Qty: 0 RF: 0 polyethylene glycol 3350 [Miralax] 17 GM powder in packet 17 gm PO QDAYP PRN (Reason: Constipation) Qty: 0 RF: 0 lisinopril 10 mg tablet 10 mg PO BID Qty: 0 RF: 0 metoprolol succinate 50 mg tablet extended release 24 hr 50 mg PO BID RF: 0 nitroglycerin 0.4 mg tablet, sublingual 0.4 mg sublingual PRN PRN (Reason: Chest Pain) RF: 0 aspirin 81 MG tablet,chewable 81 mg PO QDAY Qty: 2 RF: 0 Discontinued oxycodone-acetaminophen [Percocet] 5-325 mg tablet See Rx Instructions .ROUTE .COMPLEX PRN (Reason: painful procedure) Qty: 14 RF: 0 Follow up/Referrals: Main Keyes MD [Primary Care Provider] - Discharge Health Status Multidrug resistant organism: No MDRO Diet/Activity/Treatments Diet: Diet as Tolerated Skin/Wound/Dressing Care Report to your healthcare provider any signs of infection, such as:: chills, fever, night sweats and increased pain Discharge Data Primary Care Provider: Main Keyes Attending Provider: Katerin Grajeda Admit Date/Time: 08/14/19 20:41 Quality VTE Deep Vein Thrombosis/Pulmonary Embolism Present on Admission: No
== END 2019-08-15 14:00 | disposition home or self-care (01) ==
LOC: ED 20:08 → AC 20:42
PROVIDERS: Emergency Medicine; Admitting Provider Family Medicine; Emergency Provider Emergency Medicine; Family Provider Family Medicine; PCP Family Medicine; Visit Provider Family Medicine
DX: R29.818 Other symptoms and signs involving the nervous system (principal); I25.10 Atherosclerotic heart disease of native coronary artery without angina pectoris; E78.00 Pure hypercholesterolemia, unspecified; I10 Essential (primary) hypertension; R41.0 Disorientation, unspecified; R47.1 Dysarthria and anarthria
CPT/HCPCS: 36415; 70450; 70548; 70553; 80053; 80305; 82550; 82553; 82962; 84484; 85025; 85610; 85730; 93005; 93010; 96360; 96361; 99284; 99285; G0378

== ENCOUNTER → 2021-08-11 11:40 | Outpatient (CLI) | payer MEDICARE, OTHER, SELFPAY ==
[2019-08-14 22:04] VITALS: BMI 29.7
--- NOTE | 2021-08-11 11:46 | DI.MRI.S_ITS ---
PROCEDURE: MR HEAD/BRAIN WO CON INDICATIONS: OCCLUSION,STENOSIS OF RIGHT CAROTID TECHNIQUE: Non-contrast axial T1 spin echo, axial T2 fast spin echo, sagittal and axial FLAIR, coronal T2 fast spin echo, axial gradient echo, axial diffusion and ADC through the brain. COMPARISON: [facility], MR, MR STROKE, 08/15/2019, 10:37. FINDINGS: Image quality: Degraded by patient motion artifact. CSF spaces: Ventricles appear symmetric in size and shape. Basal cisterns are patent. No extra-axial fluid collections. Brain: No intracranial bleeds or mass effects. There is mild cerebral volume loss for age. There are severe periventricular and deep white matter chronic small vessel ischemic changes. Brainstem appears normal. Diffusion-weighted images show no acute ischemic insults. No chronic ischemic insults. Normal intravascular flow voids are present including the visualized right internal carotid artery. Skull and face: Calvarial bone marrow is normal in signal. Orbits are normal. Sinuses: Sinuses and mastoids are clear. IMPRESSION: 1. No acute intracranial disease process. 2. No areas of acute or chronic infarction. 3. Mild, diffuse cerebral volume loss. 4. Severe periventricular and subcortical white matter chronic microvascular ischemic changes. 5. Normal flow voids in the central cerebral vessels including the right internal carotid artery. Dictated by: Roberta Oakley MD, PhD on 08/11/2021 at 13:43 Approved by: Roberta Oakley MD, PhD on 08/11/2021 at 13:58
== END ==
PROVIDERS: PCP Psychiatry & Neurology Neurology; Referring Provider Psychiatry & Neurology Neurology; Visit Provider Psychiatry & Neurology Neurology
DX: I65.21 Occlusion and stenosis of right carotid artery (principal); R41.842 Visuospatial deficit; R41.89 Other symptoms and signs involving cognitive functions and awareness; H53.9 Unspecified visual disturbance
CPT/HCPCS: 70551

== ENCOUNTER → 2021-10-07 12:06 | Outpatient (CLI) | payer MEDICARE, OTHER, SELFPAY ==
[2019-08-14 22:04] VITALS: BMI 29.7
--- NOTE | 2021-10-07 12:10 | DI.US.S_ITS ---
PROCEDURE: US CAROTID DOPPLER BI INDICATIONS: OCCLUXION,STENOSIS OF RIGHT CAROTID TECHNIQUE: Color and pulse Doppler interrogation was performed of both carotid systems, with image documentation and velocity measurements. COMPARISON: [facility], CT, CT STROKE, 08/14/2019, 17:22. [facility], MR, MR STROKE, 08/15/2019, 10:37. FINDINGS: Stenosis calculations are based on SRU (Society of Radiologists in Ultrasound) criteria. Right side: Brachial blood pressure: 147/86 mm Hg. Common carotid artery peak systolic velocity: 80 cm/sec. Internal carotid artery peak systolic velocity: 293 cm/sec. Internal carotid artery end diastolic velocity: 72 cm/sec. External carotid artery peak systolic velocity: 364 cm/sec. ICA/CCA peak systolic ratio: 3.67 Mario scale imaging description: At least moderate atherosclerotic change can be seen. Percent internal carotid artery stenosis: Greater than 70% Vertebral artery: Flow direction is antegrade. Left side: Brachial blood pressure: 152/85 mm Hg. Common carotid artery peak systolic velocity: 124 cm/sec. Internal carotid artery peak systolic velocity: 117 cm/sec. Internal carotid artery end diastolic velocity: 33 cm/sec. External carotid artery peak systolic velocity: 137 cm/sec. ICA/CCA peak systolic ratio: 0.95 Mario scale imaging description: [id number] atherosclerotic change can be seen. Percent internal carotid artery stenosis: Less than 50% by velocity criteria Vertebral artery: Flow direction is antegrade. IMPRESSION: There is a greater than 70% stenosis seen involving the right proximal internal carotid artery by velocity criteria. A significant stenosis is also seen involving the right external carotid artery, which is regarded to be greater than 70%. Vascular surgery consultation is recommended. Dictated by: Raymond Zhu M.D. on 10/07/2021 at 12:12 Approved by: Raymond Zhu M.D. on 10/07/2021 at 12:14
== END ==
PROVIDERS: PCP Family Medicine; Referring Provider Psychiatry & Neurology Neurology; Visit Provider Psychiatry & Neurology Neurology
DX: I65.21 Occlusion and stenosis of right carotid artery (principal)
CPT/HCPCS: 93880

== ENCOUNTER → 2021-10-22 07:06 | Outpatient (CLI) | payer MEDICARE, OTHER, SELFPAY ==
[2019-08-14 22:04] VITALS: BMI 29.7
[2021-10-22 07:50] LABS: Ammonia (NH3) < 9 umol/L (9-30)
[2021-10-26 11:45] LABS: C10 0.38 umol/L (0.00-0.38); C10:2 0.03 umol/L (0.00-0.05); C12 0.13 umol/L (0.00-0.15); C14 0.04 umol/L (0.00-0.06); C14:1 0.09 umol/L (0.00-0.17); C14:2 0.05 umol/L (0.00-0.11); C16 0.14 umol/L (0.03-0.13); C16:1 0.03 umol/L (0.00-0.04); C18 0.06 umol/L (0.00-0.07); C18- Hydroxy 0.01 umol/L (0.00-0.02); C18:1 0.14 umol/L (0.04-0.17); C18:2 0.07 umol/L (0.00-0.11); C2 6.86 umol/L (3.23-10.29); C3 0.35 umol/L (0.16-0.62); C3-DICARBOXYLIC 0.11 umol/L (0.02-0.12); C4 0.18 umol/L (0.08-0.32); C5 0.11 umol/L (0.01-0.21); C5 Hydroxy 0.03 umol/L (0.00-0.06); C5- Dicarboxylic 0.08 umol/L (0.00-0.10); C5:1 0.02 umol/L (0.00-0.02); C6 0.05 umol/L (0.00-0.10); C8 0.29 umol/L (0.00-0.27)
== END ==
PROVIDERS: PCP Family Medicine; Referring Provider Psychiatry & Neurology Neurology; Visit Provider Psychiatry & Neurology Neurology
DX: G93.49 Other encephalopathy (principal)
CPT/HCPCS: 36415; 82017; 82140; 82726; 86617

== ENCOUNTER 2023-04-05 06:22 | Emergency (ER) | payer MEDICARE, OTHER, SELFPAY ==
[2019-08-14 22:04] VITALS: BMI 29.7
[2023-04-05] VITALS (11 sets, daily range): BP systolic 142–185; BP diastolic 70–88; PULSE 58–76; RESP 18; TEMP 36.7; O2SAT 95–99; BMI 30.5
[2023-04-05 06:47] LABS: Add Manual Diff / Slide Review NO; Basophils Absolute Auto 0 /uL (0-100); Basophils Percent Auto 0.3 % (0-2); Eosinophils Absolute Auto 100 /uL (0-450); Eosinophils Percent Auto 1.5 % (2-4); Hematocrit 47.8 % (41-53); Hemoglobin 16.3 g/dL (13.5-17.5); Lymphocytes Absolute Auto 1300 /uL (1100-4500); Lymphocytes Percent Auto 15.6 % (25-40); Mean Corpuscular HGB Conc 34.1 % (30-36); Mean Corpuscular Hemoglobin 33.8 PG (26-34); Mean Corpuscular Volume 99.2 fL (80-100); Monocytes Absolute Auto 900 /uL (0-900); Monocytes Percent Auto 9.9 % (3-14); Neutrophils Absolute Auto 6300 /uL (1500-7000); Neutrophils Percent Auto 72.7 % (50-75); Platelet Count 129 X10^3/uL (150-400); Red Blood Cell Count 4.82 X10^6/uL (4.5-5.9); Red Cell Distribution Width 13.3 % (11.6-14.8); White Blood Cell Count 8.6 X10^3/uL (4.5-11.0)
[2023-04-05 06:53] LABS: Alanine Aminotransferase 44 IU/L (<50); Albumin 4.1 g/dL (3.5-5.0); Albumin Globulin Ratio 1.4 (1.0-2.8); Alkaline Phosphatase 94 U/L (38-126); Aspartate Aminotransferase 39 IU/L (17-59); BUN Creatinine Ratio 16.4 (6-22); Bilirubin Total 0.7 mg/dL (0.2-1.3); Blood Urea Nitrogen 12 mg/dL (9-20); Calcium 9.4 mg/dL (8.4-10.2); Carbon Dioxide 29 mmol/L (22-32); Chloride 99 mmol/L (98-107); Estimated Glomerular Filt Rate > 60 mL/min (>60); Globulin 2.9 g/dL (1.7-4.1); Glucose 98 mg/dL (80-110); HEMOLYSIS < 15 (0-50); Lipase 61 U/L (23-300); Potassium 4.6 mmol/L (3.4-5.1); Sodium 134 mmol/L (137-145)
[2023-04-05] MEDS: SODIUM CHLORIDE 0.9% 1,000 ML 1000 ML IV (06:56)
--- NOTE | 2023-04-05 07:30 | ED_ITS ---
HPI - Abdominal Pain General Chief Complaint: Abdominal Pain Stated Complaint: abd pain Time Seen by Provider: 04/05/23 06:52 Source: patient Mode of arrival: Ambulatory History of Present Illness HPI narrative: 72-year-old male with history of vascular dementia, hypertension, hyperlipidemia presents by private vehicle from home for 3 weeks of intermittent cramping abdominal pain and intermittent diarrhea. Symptoms seemed to have worsened over the last 3 days and so he is here today for evaluation. He and his have been trying to adjust their diet at home to see if a dietary problem is causing his diarrhea. Related Data Home Medications Medication Instructions Recorded Confirmed MULTIVITAMIN/MINERALS (ICAPS PLUS) 1 tab PO QDAY ##0 06/25/16 08/15/19 atorvastatin 40 mg tablet (Lipitor) 40 mg PO DAILY ##0 06/25/16 08/14/19 polyethylene glycol 3350 17 gram 17 gm PO QDAYP PRN Constipation ##0 06/25/16 08/15/19 oral powder packet (Miralax) lisinopril 10 mg tablet 10 mg PO BID #0 tabs 03/21/18 08/14/19 metoprolol succinate 50 mg 50 mg PO BID 08/14/19 08/14/19 tablet,extended release 24 hr nitroglycerin 0.4 mg sublingual 0.4 mg sublingual PRN PRN Chest 08/14/19 08/14/19 tablet Pain Previous Rx's Medication Instructions Recorded aspirin 81 mg chewable tablet 81 mg PO QDAY #2 tabs 08/15/19 loperamide 2 mg capsule (Imodium 2 mg PO Q6H PRN loose stool #14 04/05/23 A-D) caps Allergies Allergy/AdvReac Type Severity Reaction Status Date / Time No Known Drug Intolerances Allergy Verified 08/14/19 20:51 latex AdvReac itching, Verified 08/14/19 20:51 redness Review of Systems Review of Systems Narrative: CONSTITUTIONAL- Denies: fever, chills, fatigue HEENT- Denies: sore throat, nosebleed, vision changes RESPIRATORY- Denies: shortness of breath, cough, wheezing CARDIAC- Denies: chest pain, edema, orthopnea GI-reports: Abdominal pain, diarrhea Denies: nausea, vomiting, constipation - Denies: frequency, dysuria, hematuria, flank pain MSK- Denies: extremity pain, extremity swelling, joint pain, joint swelling SKIN- Denies: rash, itching, burn, swelling NEUROLOGICAL- Denies: headache, numbness, weakness, dizziness PSYCHIATRIC- Denies: anxiety, depression, suicidal ideation, homicidal ideation Patient History Medical History (Updated 04/05/23 @ 10:05 by Peg Lopez MD) Elevated cholesterol Hypertension History of herniated intervertebral disc Coronary heart disease Surgical History History of heart artery stent Status post aorto-coronary artery bypass graft Social History marital status: household members: spouse occupational status: employed Smoking Status: Never smoker alcohol intake: current substance use type: does not use Smoking Status: Never smoker alcohol intake frequency: 0-2 drinks per day Alcohol type: beer Substance Use Type: does not use Exam Initial Vital Signs Initial Vital Signs: Vital Signs Pulse Rate 73 04/05/23 06:29 Pulse Oximetry 97 04/05/23 06:29 Const: Awake, alert, no acute distress, nontoxic appearing Eyes: PERRL, EOMI, conjunctiva normal ENT: Atraumatic, dentition normal, mucous membranes moist Cardiac: regular rate, regular rhythm RESP: unlabored, clear bilaterally, no wheezing GI: Atraumatic, soft, nontender, nondistended, no rebound, no guarding MSK: Atraumatic, full range of motion, pulses equal Skin: Warm, Dry, intact, no rashes Neuro: AO x3, CN II-XII grossly intact, moves all extremities Psych: affect normal, mood normal, not suicidal, not homicidal Course Course Course Narrative: Three weeks of intermittent abdominal pain and diarrhea. Abdomen is soft, vitals unremarkable. We will order labs and CT imaging. If patient is able to provide a stool sample we will run that in the lab. Orders Ordered: ED Orders 04/05/23 06:35 Complete Blood Count AUTO DIFF Stat Comprehensive Metabolic Panel Stat Lipase Stat 04/05/23 06:40 EKG-12 Lead Stat 04/05/23 07:35 CT abdomen pelvis w con Stat 04/05/23 09:04 CT chest w con Stat Discontinued Medications Sodium Chloride (Normal Saline 0.9%) 1,000 mls @ 1,000 mls/hr IV BOLUS ONE Stop: 04/05/23 07:45 Last Infusion: 04/05/23 09:00 Dose: Infused Documented By: Admin: 04/05/23 06:56 Dose: 1,000 mls/hr Documented By: NAIDA Ondansetron HCl (Ondansetron 4 Mg Odt) 4 mg PO NOW PRN PRN Reason: Nausea And Vomiting Ondansetron HCl (Ondansetron 4 Mg/2 Ml Inj) 4 mg IV NOW PRN PRN Reason: Nausea And Vomiting Reevaluation(s) Reevaluation #1: Laboratory work is unremarkable. CT imaging shows no findings to explain patient's abdominal pain or diarrhea. Incidental findings of pulmonary nodules, recommended CT imaging. was not aware that patient had previous pulmonary nodules and agreed to CT scan. Reevaluation #2: CT scan with likely benign nodules, recommended six-month follow up. Discussed with patient and at bedside, included CT impressions in discharge paperwork. Short trial of loperamide provided, recommended that the patient continue to monitor his diet and a ED return precautions discussed at bedside. Patient expressed understanding of the plan and is in agreement at this time. All questions answered at the time of discharge. dvised PCP follow up. Vital Signs Vital signs: Vital Signs - 8 hr 04/05/23 06:29 04/05/23 06:30 04/05/23 06:30 Temperature 98.1 F Pulse Rate 73 76 73 Respiratory Rate 18 Blood Pressure 167/88 H Pulse Oximetry 97 98 96 Oxygen Delivery Method Room Air 04/05/23 06:30 04/05/23 07:00 04/05/23 07:00 Temperature Pulse Rate 63 Respiratory Rate Blood Pressure 167/86 H 149/70 H Pulse Oximetry 99 Oxygen Delivery Method 04/05/23 07:30 04/05/23 07:30 04/05/23 08:35 Temperature Pulse Rate 62 Respiratory Rate Blood Pressure 173/81 H 185/86 H Pulse Oximetry 98 Oxygen Delivery Method 04/05/23 08:35 04/05/23 09:00 04/05/23 09:01 Temperature Pulse Rate 64 58 L 67 Respiratory Rate Blood Pressure Pulse Oximetry 96 95 97 Oxygen Delivery Method 04/05/23 09:01 04/05/23 09:32 04/05/23 09:33 Temperature Pulse Rate 63 62 Respiratory Rate Blood Pressure 142/80 H Pulse Oximetry 97 97 Oxygen Delivery Method 04/05/23 09:33 04/05/23 10:00 04/05/23 10:01 Temperature Pulse Rate 62 68 Respiratory Rate Blood Pressure 165/78 H Pulse Oximetry 97 97 Oxygen Delivery Method 04/05/23 10:01 Temperature Pulse Rate Respiratory Rate Blood Pressure 152/79 H Pulse Oximetry Oxygen Delivery Method MDM - Abdominal Pain Differential Diagnosis Differential diagnosis: Likely abdominal pain, acute appendicitis and constipation Lab Data 04/05/23 06:35 04/05/23 06:35 Labs: Lab Results 04/05/23 Range/Units 06:35 WBC 8.6 (4.5-11.0) X10^3/uL RBC 4.82 (4.5-5.9) X10^6/uL Hgb 16.3 (13.5-17.5) g/dL Hct 47.8 (41-53) % MCV 99.2 (80-100) fL MCH 33.8 (26-34) PG MCHC 34.1 (30-36) % RDW 13.3 (11.6-14.8) % Plt Count 129 L (150-400) X10^3/uL Neut % (Auto) 72.7 (50-75) % Lymph % (Auto) 15.6 L (25-40) % [place] % (Auto) 9.9 (3-14) % Eos % (Auto) 1.5 L (2-4) % Baso % (Auto) 0.3 (0-2) % Neut # (Auto) 6300 (2459-2599) /uL Lymph # (Auto) 1300 (5501-4499) /uL [place] # (Auto) 900 (0-900) /uL Eos # (Auto) 100 (0-450) /uL Baso # (Auto) 0 (0-100) /uL Sodium 134 L (137-145) mmol/L Potassium 4.6 (3.4-5.1) mmol/L Chloride 99 (98-107) mmol/L Carbon Dioxide 29 (22-32) mmol/L BUN 12 (9-20) mg/dL Creatinine 0.73 (0.66-1.25) mg/dL Estimated GFR > 60 (>60) mL/min BUN/Creatinine Ratio 16.4 (6-22) Glucose 98 (80-110) mg/dL Calcium 9.4 (8.4-10.2) mg/dL Total Bilirubin 0.7 (0.2-1.3) mg/dL AST 39 (17-59) IU/L ALT 44 (<50) IU/L Alkaline Phosphatase 94 (38-126) U/L Total Protein 7.0 (6.3-8.2) g/dL Albumin 4.1 (3.5-5.0) g/dL Globulin 2.9 (1.7-4.1) g/dL Albumin/Globulin Ratio 1.4 (1.0-2.8) Lipase 61 (23-300) U/L Point of care testing: Urine Dip Bedside Urine Glucose Negative Bedside Urine Bilirubin - Negative Bedside Urine Ketone - Negative Urine Specific [place] 1.010 Bedside Urine Occult Blood - Negative Bedside Urine pH 6.0 Bedside Urine Protein - Negative Bedside Urine Urobilinogen - Negative Bedside Urine Nitrite - Negative Bedside Urine Leukocytes - Negative Esterase Discharge Plan Departure Patient Disposition: Home Clinical Impression: Diarrhea, Incidental pulmonary nodule Instructions: Diarrhea, DI for Pulmonary Nodule Activity Restrictions/Additional Instructions: YOUR CHEST CT TODAY IS FOLLOWS: MAKE SURE TO FOLLOW UP WITH YOUR PCP IMPRESSION: Multiple subcentimeter pulmonary nodules as detailed above. Differential diagnosis includes neoplasm, however the largest nodule in the right upper lobe was present on a prior x-ray on 03/14/2018 and was stable compared to a more remote x-ray 05/26/2016, therefore nodule seen on the CT are probably benign. However no prior CT is available for comparison. Recommend follow-up CT in 6 months to ensure stability. Prescriptions: New loperamide [Imodium A-D] 2 mg capsule 2 mg PO Q6H PRN (Reason: loose stool) Qty: 14 0RF No Action atorvastatin [Lipitor] 40 MG tablet 40 mg PO DAILY Qty: 0 MULTIVITAMIN/MINERALS (ICAPS PLUS) 1 tab PO QDAY Qty: 0 polyethylene glycol 3350 [Miralax] 17 GM powder in packet 17 gm PO QDAYP PRN (Reason: Constipation) Qty: 0 lisinopril 10 mg tablet 10 mg PO BID Qty: 0 metoprolol succinate 50 mg tablet extended release 24 hr 50 mg PO BID nitroglycerin 0.4 mg tablet, sublingual 0.4 mg sublingual PRN PRN (Reason: Chest Pain) aspirin 81 MG tablet,chewable 81 mg PO QDAY Qty: 2 0RF Referrals: Mayco Burrell MD [Primary Care Provider] - Stand Alone Forms: Patient Portal/API
--- NOTE | 2023-04-05 07:35 | DI.CT.S_ITS ---
PROCEDURE: CT ABDOMEN PELVIS W CON INDICATIONS: GENERALIZED ABD PAIN, DIARRHEA X3 DAYS TECHNIQUE: After the administration of intravenous contrast, axial sections acquired from the lung bases to the pubic symphysis. Coronal and sagittal reformats were performed. For radiation dose reduction, the following was used: automated exposure control, adjustment of mA and/or kV according to patient size. COMPARISON: None. FINDINGS: Image quality: Excellent. Lung bases: Lung bases are clear. Heart size is normal. 7 millimeter peripheral nodule in the right lower lobe along the fissure. 5 millimeter peripheral nodule in the left lower lobe along the fissure. 2 intrapulmonary nodules in the right middle lobe series 2, image 9 and series 2, image 10 are also present. Solid organs: Liver: The liver has no mass or intrahepatic biliary ductal dilatation. The portal vein and hepatic veins are patent. Biliary: The gallbladder has no gallstones, pericholecystic fluid, gallbladder wall thickening, or surrounding inflammatory change. Pancreas: The pancreas has no mass or ductal dilatation. There is no surrounding inflammation. Spleen: Normal size. There are no masses. Adrenals: No hypertrophy or nodules. Kidneys: No obstructive calculus or hydronephrosis. No solid mass. No cystic mass. Peritoneum and bowel: The distal esophagus and stomach are normal. The small bowel has a normal caliber and appearance. The terminal ileum is normal. The large bowel has diverticulosis with no evidence of diverticulitis. The appendix is normal. No free fluid or air. Nodes and vessels: No retroperitoneal or mesenteric adenopathy by size criteria. The aorta has atherosclerosis with no aneurysmal dilatation. Miscellaneous: No abdominal wall mass or hernia. PELVIS: Genitourinary: The bladder has no wall thickening or mass. The prostate is enlarged measuring 4.9 x 5.5 cm. Bones: No suspicious bony lesions. No vertebral body compression fractures. Multilevel degenerative changes. IMPRESSION: 1. No acute abdominal or pelvic abnormality. 2. Coronary arteries have atherosclerotic calcifications. 3. Diverticulosis without evidence of acute diverticulitis. 4. Pulmonary nodules peripherally along the fissure in both lower lobes, probably lymph nodes as well as nodules in the right middle lobe. Recommend CT of the chest to further evaluate. Dictated by: Ant Jose M.D. on 04/05/2023 at 8:22 Approved by: Ant Jose M.D. on 04/05/2023 at 8:36
--- NOTE | 2023-04-05 09:04 | DI.CT.S_ITS ---
PROCEDURE: CT CHEST W CON INDICATIONS: PULM NODULES ON ABD CT TECHNIQUE: After the administration of intravenous contrast, 5 mm thick sections acquired from the pulmonary apices to the posterior costophrenic angles. 1 mm axial lung, 5 mm thick coronal and sagittal reformats and 7 mm axial MIP were acquired. For radiation dose reduction, the following was used: automated exposure control, adjustment of mA and/or kV according to patient size. COMPARISON: [facility], , XR CHEST 2V, 03/14/2018, 14:27. FINDINGS: Image quality: Excellent. Lungs and pleura: Multiple pulmonary nodules are present: 6 millimeter nodule peripherally along the fissure series 3, image 233. 6 millimeter nodule centrally in the right middle lobe series 3, image 202. 4 millimeter nodule in the right middle lobe series 3, image 201. 8 millimeter nodule right upper lobe series 3, image 108. 4 millimeter nodule right upper lobe series 3, image 88 with a central calcification. Left lower lobe nodule along the fissure measuring 6 mm series 3, image 248. No acute air space opacities. No pleural effusions or pneumothorax. Central and peripheral airways are patent and normal in caliber. Mediastinum: Heart size is normal. The coronary arteries have atherosclerotic calcifications. No pericardial effusion. No mediastinal adenopathy by size criteria. Thoracic aorta and central pulmonary arteries are normal in size. Esophagus is normal in caliber. No hiatal hernia. Bones and chest wall: No suspicious bony lesions. No vertebral body compression fractures. No axillary or supraclavicular adenopathy by size criteria. Thyroid gland is normal. Abdomen: Limited visualization of the upper abdomen shows no acute abnormality. IMPRESSION: Multiple subcentimeter pulmonary nodules as detailed above. Differential diagnosis includes neoplasm, however the largest nodule in the right upper lobe was present on a prior x-ray on 03/14/2018 and was stable compared to a more remote x-ray 05/26/2016, therefore nodule seen on the CT are probably benign. However no prior CT is available for comparison. Recommend follow-up CT in 6 months to ensure stability. Dictated by: Ant Jose M.D. on 04/05/2023 at 9:38 Approved by: Ant Jose M.D. on 04/05/2023 at 9:51
== END 2023-04-05 10:17 | disposition home or self-care (01) ==
PROVIDERS: Emergency Medicine; Emergency Provider Emergency Medicine; PCP Family Medicine
DX: R19.7 Diarrhea, unspecified (principal); R91.1 Solitary pulmonary nodule; R10.9 Unspecified abdominal pain
CPT/HCPCS: 36415; 71260; 74177; 80053; 81003; 83690; 85025; 93005; 96360; 96361; 99284; Q9967

== ENCOUNTER 2023-08-01 16:28 | Emergency (ER) | payer MEDICARE, OTHER, SELFPAY ==
[2019-08-14 22:04] VITALS: BMI 29.7
[2023-08-01] VITALS (9 sets, daily range): BP systolic 157–194; BP diastolic 74–119; PULSE 61–69; RESP 15–24; TEMP 36.6; O2SAT 96–100; BMI 30.9
--- NOTE | 2023-08-01 16:46 | DI.RAD.S_ITS ---
PROCEDURE: XR CHEST 1V INDICATIONS: suspected sepsis TECHNIQUE: One view of the chest was acquired. COMPARISON: [facility], CT, CT CHEST W CON, 04/05/2023, 9:15. FINDINGS: Surgical changes and devices: None. Lungs and pleura: Redemonstration of nodular density in the right upper lung zone. Lungs are otherwise clear. No pleural effusions or pneumothorax. Mediastinum: Mediastinal contours appear normal. Heart size is normal. Bones and chest wall: No suspicious bony lesions. Overlying soft tissues appear unremarkable. IMPRESSION: No acute cardiopulmonary abnormality is seen. Dictated by: Young Prado M.D. on 08/01/2023 at 17:14 Approved by: Young Prado M.D. on 08/01/2023 at 17:15
--- NOTE | 2023-08-01 16:48 | DI.CT.S_ITS ---
PROCEDURE: CT HEAD/BRAIN WO CON INDICATIONS: new confusion TECHNIQUE: Noncontrast 4.5 mm thick angled axial sections acquired from the foramen magnum to the vertex, with coronal and sagittal reformats. For radiation dose reduction, the following was used: automated exposure control, adjustment of mA and/or kV according to patient size. COMPARISON: [facility], CT, CT STROKE, 08/14/2019, 17:22. [facility], MR, MR STROKE, 08/15/2019, 10:37. [facility], MR, MR HEAD/BRAIN WO CON, 08/11/2021, 11:53. [facility], CT, CT ANGIO HEAD AND NECK, 08/01/2023, 17:15. FINDINGS: Image quality: Diagnostic. CSF spaces: Basal cisterns are patent. No extra-axial fluid collections. The ventricles are symmetric in size and shape. Brain: No intracranial bleeds or masses. There is prominent cerebral volume loss, with resultant ventricular and sulcal prominence. There are prominent periventricular and deep white matter chronic small vessel ischemic changes. There is intracranial internal carotid artery atherosclerosis. Skull and face: Calvarium and visualized facial bones appear intact, without suspicious lesions. Sinuses: Visualized sinuses and mastoids are clear. IMPRESSION: No acute intracranial pathology. Note is made of prominent brain parenchymal volume loss and chronic small vessel ischemic changes. If there is strong clinical suspicion for an acute stroke, please consider a brain MRI for further evaluation, as it is more sensitive (assuming that there is no contraindication to MRI). Dictated by: Raymond Zhu M.D. on 08/01/2023 at 16:44 Approved by: Raymond Zhu M.D. on 08/01/2023 at 16:49
--- NOTE | 2023-08-01 16:59 | DI.CT.S_ITS ---
PROCEDURE: CT ANGIO HEAD AND NECK INDICATIONS: new confusion TECHNIQUE: After the administration of intravenous contrast, 1 mm thick sections acquired from the aortic arch through the [place]. 3-dimensional [id number]-[id number] (MIP) and/or volume rendering reformats were acquired of the central intracranial vasculature and neck separately. For radiation dose reduction, the following was used: automated exposure control, adjustment of mA and/or kV according to patient size. COMPARISON: [facility]erged With [facility], MR, MR STROKE, 08/15/2019, 10:37. Merged With [facility], CT, CT HEAD/BRAIN WO CON, 08/01/2023, 17:15. Merged With [facility], US, US CAROTID DOPPLER BI, 10/07/2021, 12:22. FINDINGS: Image quality: There is streak artifact seen through the level of the shoulders. BRAIN: CSF spaces: Ventricles are normal in size and shape. Basal cisterns are patent. No extra-axial fluid collections. Brain: No significant abnormality of the brain can be seen. Skull and face: Calvarium and facial bones appear intact, without suspicious lesions. Orbits appear normal. Sinuses: Sinuses and mastoids are clear. HEAD CT ANGIOGRAPHY: Anterior circulation: Intracranial internal carotid arteries are normal in size and flow. The flow within the paired anterior cerebral arteries is normal and symmetric. The flow within the middle cerebral arteries is normal and symmetric. The anterior communicating artery is seen. No aneurysms are seen. Posterior circulation: Visualized portions of the vertebral arteries demonstrate normal caliber, and join to form a normal appearing basilar artery. There is a prominent left posterior communicating artery seen, with an accompanying diminutive left P1 segment. This is attributed to a type origin of the right posterior cerebral artery, which is considered to be a normal developmental variant of typically no clinical consequence. The flow within the posterior cerebral arteries is normal and symmetric. No aneurysms are seen. NECK CT ANGIOGRAPHY: Carotid system: The great vessels demonstrate a conventional anatomy as they arise from the aortic arch. The origins of the common carotid arteries appear patent. The common carotid arteries demonstrate normal caliber and courses. The bifurcation regions demonstrate atherosclerotic irregularity and calcification, with 80-90% narrowing seen on the right and 70-80% narrowing on the left. Posterior circulation: The origins of the vertebral arteries both appear widely patent. The more superior extracranial portions of both vertebral arteries also demonstrate normal courses and calibers. They join to form a normal appearing basilar artery. Soft tissues: Visualized neck soft tissues demonstrate no suspicious abnormalities. Bones: No suspicious bony lesions. Visualized cervical spine appears normally aligned. At least moderate cervical spine degenerative change can be seen. Sternotomy wires are partially seen. IMPRESSION: No significant intracranial arterial abnormality is seen. 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 Additional findings: Drnani-th-Zcoqsm developmental anomalies Cervical spine degenerative change Sternotomy wires Any quantitative measurements of stenosis were performed using NASCET criteria. Dictated by: Raymond Zhu M.D. on 08/01/2023 at 16:50 Approved by: Raymond Zhu M.D. on 08/01/2023 at 16:51
[2023-08-01 17:14] LABS: Add Manual Diff / Slide Review NO; Basophils Absolute Auto 0 /uL (0-100); Basophils Percent Auto 0.5 % (0-2); Eosinophils Absolute Auto 100 /uL (0-450); Eosinophils Percent Auto 1.6 % (2-4); Hematocrit 48.5 % (41-53); Hemoglobin 16.5 g/dL (13.5-17.5); Lymphocytes Absolute Auto 1300 /uL (1100-4500); Lymphocytes Percent Auto 15.8 % (25-40); Mean Corpuscular HGB Conc 34.1 % (30-36); Mean Corpuscular Hemoglobin 33.6 PG (26-34); Mean Corpuscular Volume 98.5 fL (80-100); Monocytes Absolute Auto 800 /uL (0-900); Monocytes Percent Auto 9.3 % (3-14); Neutrophils Absolute Auto 6200 /uL (1500-7000); Neutrophils Percent Auto 72.8 % (50-75); Platelet Count 153 X10^3/uL (150-400); Red Blood Cell Count 4.93 X10^6/uL (4.5-5.9); Red Cell Distribution Width 12.9 % (11.6-14.8); White Blood Cell Count 8.5 X10^3/uL (4.5-11.0)
[2023-08-01 17:17] LABS: INR 1.1 (0.9-1.3); Prothrombin Time 12.4 SECONDS (9.4-12.5)
[2023-08-01 17:19] LABS: Lactate (Lactic Acid) 0.9 mmol/L (0.7-2.1); PTT Partial Thromboplastin Tim 36 SECONDS (25.1-36.5)
[2023-08-01 17:20] LABS: Alanine Aminotransferase 50 IU/L (<50); Albumin 4.5 g/dL (3.5-5.0); Albumin Globulin Ratio 1.4 (1.0-2.8); Alkaline Phosphatase 96 U/L (38-126); Aspartate Aminotransferase 43 IU/L (17-59); BUN Creatinine Ratio 17.6 (6-22); Bilirubin Total 0.7 mg/dL (0.2-1.3); Blood Urea Nitrogen 12 mg/dL (9-20); Calcium 9.1 mg/dL (8.4-10.2); Carbon Dioxide 25 mmol/L (22-32); Chloride 101 mmol/L (98-107); Creatine Kinase 300 U/L (55-170); Estimated Glomerular Filt Rate > 60 mL/min (>60); Globulin 3.2 g/dL (1.7-4.1); Glucose 105 mg/dL (80-110); HEMOLYSIS < 15 (0-50); Lipase 358 U/L (23-300); Potassium 4.1 mmol/L (3.4-5.1); Sodium 133 mmol/L (137-145); Total Protein 7.7 g/dL (6.3-8.2)
[2023-08-01 17:32] LABS: NT-proBNP (BNP-Adult 18+) 305 pg/mL (<125); Troponin I < 0.012 ng/mL (0.01-0.034)
[2023-08-01 17:37] LABS: Procalcitonin 0.03 ng/mL (<0.5)
--- NOTE | 2023-08-01 20:20 | PC.NURSE ---
pt ambulated to bathroom with minimal assistance. gait steady.
--- NOTE | 2023-08-01 20:22 | ED.NEUROSD ---
HPI - Neuro Symptoms/Deficit General Chief Complaint: Neuro Symptoms/Deficit Stated Complaint: thinks he had a mini stroke Time Seen by Provider: 08/01/23 18:03 Source: patient and family Mode of arrival: Ambulatory History of Present Illness HPI Narrative: Patient is a 73-year-old male. Has a history of vascular dementia. Is here with his . Two days ago started to have worsening episodes of not being able to complete tasks that he normally does. He states he was out in his shop. He was doing some painting. Normally he is able to do this without much difficulty. He states that he started to have difficulty and then became frustrated with this. The seem to [place] into then becoming somewhat agitated. This happened a couple times over the past couple days. Patient's is at bedside. She states during these episodes and currently he is speaking normally. There has been no facial droop. He denies any specific balance problems. Denies any specific lateralizing weakness. He has had a mini-stroke in the past. He has known right-sided carotid stenosis. He has seen vascular surgery for this but at the time decision was made to not pursue surgery. Currently he denies headache, vision changes, chest pain, palpitations, shortness of breath, abdominal pain or nausea or vomiting. Denies any weakness or numbness and tingling in his upper lower extremities. On Anticoagulants: No Related Data Home Medications Medication Instructions Recorded Confirmed MULTIVITAMIN/MINERALS (ICAPS PLUS) 1 tab PO QDAY ##0 06/25/16 08/15/19 atorvastatin 40 mg tablet (Lipitor) 40 mg PO DAILY ##0 06/25/16 08/14/19 polyethylene glycol 3350 17 gram 17 gm PO QDAYP PRN Constipation ##0 06/25/16 08/15/19 oral powder packet (Miralax) lisinopril 10 mg tablet 10 mg PO BID #0 tabs 03/21/18 08/14/19 metoprolol succinate 50 mg 50 mg PO BID 08/14/19 08/14/19 tablet,extended release 24 hr nitroglycerin 0.4 mg sublingual 0.4 mg sublingual PRN PRN Chest 08/14/19 08/14/19 tablet Pain Previous Rx's Medication Instructions Recorded aspirin 81 mg chewable tablet 81 mg PO QDAY #2 tabs 03/12/20 loperamide 2 mg capsule (Imodium 2 mg PO Q6H PRN loose stool #14 04/05/23 A-D) caps Allergies Allergy/AdvReac Type Severity Reaction Status Date / Time No Known Drug Intolerances Allergy Verified 08/14/19 20:51 latex AdvReac itching, Verified 08/14/19 20:51 redness Review of Systems Review of Systems ROS Unobtainable: All systems reviewed & are unremarkable except as noted in HPI and below Hematologic/Lymphatic On Anticoagulants: No Patient History Medical History Elevated cholesterol Hypertension History of herniated intervertebral disc Coronary heart disease Surgical History History of heart artery stent Status post aorto-coronary artery bypass graft Social History marital status: household members: spouse occupational status: employed Smoking Status: Never smoker alcohol intake: current substance use type: does not use Smoking Status: Never smoker alcohol intake frequency: a few times a week Alcohol type: beer Substance Use Type: does not use Exam Initial Vital Signs Initial Vital Signs: Vital Signs Temperature 97.9 F 08/01/23 16:30 Pulse Rate 65 08/01/23 16:30 Respiratory Rate 18 08/01/23 16:30 Blood Pressure 194/85 H 08/01/23 16:30 Pulse Oximetry 98 08/01/23 16:30 Oxygen Delivery Method Room Air 08/01/23 16:30 Const General: cooperative, comfortable and No ill appearing HENSC Head: normal to inspection and normocephalic Resp Effort & Inspection: normal respiratory effort Auscultation: clear to auscultation bilaterally Cardio Rate: regular rate Rhythm: regular rhythm GI Inspection: normal to inspection and non-distended Skin General: no rashes or lesions noted Neuro General: patient alert, patient awake, patient oriented x3 and moves all extremities Cognition: normal cognition Speech: other (Slow speech) Sensory Exam: no sensory deficits noted Extrem General: normal to inspection and capillary refill normal Course Orders Ordered: Discontinued Medications Ondansetron HCl (Ondansetron 4 Mg/2 Ml Inj) 4 mg IV NOW PRN PRN Reason: Nausea And Vomiting Ondansetron HCl (Ondansetron 4 Mg Odt) 4 mg SL NOW PRN PRN Reason: Nausea And Vomiting Vital Signs Vital signs: Vital Signs - 8 hr 08/01/23 18:35 08/01/23 18:37 08/01/23 18:37 Pulse Rate 62 61 Respiratory Rate 15 Blood Pressure 174/91 H Pulse Oximetry 98 98 Oxygen Delivery Method Room Air 08/01/23 19:00 08/01/23 19:00 08/01/23 19:30 Pulse Rate 62 64 Respiratory Rate 18 24 Blood Pressure 158/74 H Pulse Oximetry 100 99 Oxygen Delivery Method Room Air Room Air 08/01/23 19:30 08/01/23 20:00 08/01/23 20:00 Pulse Rate 65 Respiratory Rate 22 Blood Pressure 164/77 H 166/80 H Pulse Oximetry 97 Oxygen Delivery Method Room Air 08/01/23 20:25 08/01/23 20:25 08/01/23 20:30 Pulse Rate 69 64 Respiratory Rate Blood Pressure 171/119 H Pulse Oximetry 96 99 Oxygen Delivery Method Room Air Room Air 08/01/23 20:30 08/01/23 21:00 08/01/23 21:00 Pulse Rate 68 Respiratory Rate Blood Pressure 167/95 H 157/76 H Pulse Oximetry 96 Oxygen Delivery Method MDM - Neuro Symptoms/Deficit Lab Data Attestation: I reviewed the patient's lab results. 08/01/23 16:55 08/01/23 16:55 Labs: Lab Results 08/01/23 Range/Units 16:55 WBC 8.5 (4.5-11.0) X10^3/uL RBC 4.93 (4.5-5.9) X10^6/uL Hgb 16.5 (13.5-17.5) g/dL Hct 48.5 (41-53) % MCV 98.5 (80-100) fL MCH 33.6 (26-34) PG MCHC 34.1 (30-36) % RDW 12.9 (11.6-14.8) % Plt Count 153 (150-400) X10^3/uL Neut % (Auto) 72.8 (50-75) % Lymph % (Auto) 15.8 L (25-40) % Murray % (Auto) 9.3 (3-14) % Eos % (Auto) 1.6 L (2-4) % Baso % (Auto) 0.5 (0-2) % Neut # (Auto) 6200 (5605-2023) /uL Lymph # (Auto) 1300 (1675-9268) /uL [place] # (Auto) 800 (0-900) /uL Eos # (Auto) 100 (0-450) /uL Baso # (Auto) 0 (0-100) /uL PT 12.4 (9.4-12.5) SECONDS INR 1.1 (0.9-1.3) APTT 36 (25.1-36.5) SECONDS Sodium 133 L (137-145) mmol/L Potassium 4.1 (3.4-5.1) mmol/L Chloride 101 (98-107) mmol/L Carbon Dioxide 25 (22-32) mmol/L BUN 12 (9-20) mg/dL Creatinine 0.68 (0.66-1.25) mg/dL Estimated GFR > 60 (>60) mL/min BUN/Creatinine Ratio 17.6 (6-22) Glucose 105 (80-110) mg/dL Lactate 0.9 (0.7-2.1) mmol/L Calcium 9.1 (8.4-10.2) mg/dL Total Bilirubin 0.7 (0.2-1.3) mg/dL AST 43 (17-59) IU/L ALT 50 H (<50) IU/L Alkaline Phosphatase 96 (38-126) U/L Total Creatine Kinase 300 H (55-170) U/L Troponin I < 0.012 (0.01-0.034) ng/mL NT-Pro-B Natriuret Pep 305 H (<125) pg/mL Total Protein 7.7 (6.3-8.2) g/dL Albumin 4.5 (3.5-5.0) g/dL Globulin 3.2 (1.7-4.1) g/dL Albumin/Globulin Ratio 1.4 (1.0-2.8) Lipase 358 H (23-300) U/L Procalcitonin 0.03 (<0.5) ng/mL Urine Dip Bedside Urine Glucose Negative Bedside Urine Bilirubin - Negative Bedside Urine Ketone - Negative Urine Specific [place] 1.010 Bedside Urine Occult Blood - Negative Bedside Urine pH 5.5 Bedside Urine Protein - Negative Bedside Urine Urobilinogen - Negative Bedside Urine Nitrite - Negative Bedside Urine Leukocytes - Negative Esterase Imaging Data Chest x-ray: Radiologist's Impression: PROCEDURE: XR CHEST 1V INDICATIONS: suspected sepsis TECHNIQUE: One view of the chest was acquired. COMPARISON: [facility], CT, CT CHEST W CON, 04/05/2023, 9:15. FINDINGS: Surgical changes and devices: None. Lungs and pleura: Redemonstration of nodular density in the right upper lung zone. Lungs are otherwise clear. No pleural effusions or pneumothorax. Mediastinum: Mediastinal contours appear normal. Heart size is normal. Bones and chest wall: No suspicious bony lesions. Overlying soft tissues appear unremarkable. IMPRESSION: No acute cardiopulmonary abnormality is seen. CT scan - head: Radiologist's Impression: PROCEDURE: CT HEAD/BRAIN WO CON INDICATIONS: new confusion TECHNIQUE: Noncontrast 4.5 mm thick angled axial sections acquired from the foramen magnum to the vertex, with coronal and sagittal reformats. For radiation dose reduction, the following was used: automated exposure control, adjustment of mA and/or kV according to patient size. COMPARISON: [facility], CT, CT STROKE, 08/14/2019, 17:22. [facility], MR, MR STROKE, 08/15/2019, 10:37. [facility], MR, MR HEAD/BRAIN WO CON, 08/11/2021, 11:53. [facility], CT, CT ANGIO HEAD AND NECK, 08/01/2023, 17:15. FINDINGS: Image quality: Diagnostic. CSF spaces: Basal cisterns are patent. No extra-axial fluid collections. The ventricles are symmetric in size and shape. Brain: No intracranial bleeds or masses. There is prominent cerebral volume loss, with resultant ventricular and sulcal prominence. There are prominent periventricular and deep white matter chronic small vessel ischemic changes. There is intracranial internal carotid artery atherosclerosis. Skull and face: Calvarium and visualized facial bones appear intact, without suspicious lesions. Sinuses: Visualized sinuses and mastoids are clear. IMPRESSION: No acute intracranial pathology. Note is made of prominent brain parenchymal volume loss and chronic small vessel ischemic changes. If there is strong clinical suspicion for an acute stroke, please consider a brain MRI for further evaluation, as it is more sensitive (assuming that there is no contraindication to MRI). CTA - brain/neck: Radiologist's Impression: PROCEDURE: CT ANGIO HEAD AND NECK INDICATIONS: new confusion TECHNIQUE: After the administration of intravenous contrast, 1 mm thick sections acquired from the aortic arch through the [place]. 3-dimensional aeibyre-gxoihlyll-dyeithncfb (MIP) and/or volume rendering reformats were acquired of the central intracranial vasculature and neck separately. For radiation dose reduction, the following was used: automated exposure control, adjustment of mA and/or kV according to patient size. COMPARISON: [facility], MR, MR STROKE, 08/15/2019, 10:37. [facility], CT, CT HEAD/BRAIN WO CON, 08/01/2023, 17:15. [facility], US, US CAROTID DOPPLER BI, 10/07/2021, 12:22. FINDINGS: Image quality: There is streak artifact seen through the level of the shoulders. BRAIN: CSF spaces: Ventricles are normal in size and shape. Basal cisterns are patent. No extra-axial fluid collections. Brain: No significant abnormality of the brain can be seen. Skull and face: Calvarium and facial bones appear intact, without suspicious lesions. Orbits appear normal. Sinuses: Sinuses and mastoids are clear. HEAD CT ANGIOGRAPHY: Anterior circulation: Intracranial internal carotid arteries are normal in size and flow. The flow within the paired anterior cerebral arteries is normal and symmetric. The flow within the middle cerebral arteries is normal and symmetric. The anterior communicating artery is seen. No aneurysms are seen. Posterior circulation: Visualized portions of the vertebral arteries demonstrate normal caliber, and join to form a normal appearing basilar artery. There is a prominent left posterior communicating artery seen, with an accompanying diminutive left P1 segment. This is attributed to a type origin of the right posterior cerebral artery, which is considered to be a normal developmental variant of typically no clinical consequence. The flow within the posterior cerebral arteries is normal and symmetric. No aneurysms are seen. NECK CT ANGIOGRAPHY: Carotid system: The great vessels demonstrate a conventional anatomy as they arise from the aortic arch. The origins of the common carotid arteries appear patent. The common carotid arteries demonstrate normal caliber and courses. The bifurcation regions demonstrate atherosclerotic irregularity and calcification, with 80-90% narrowing seen on the right and 70-80% narrowing on the left. Posterior circulation: The origins of the vertebral arteries both appear widely patent. The more superior extracranial portions of both vertebral arteries also demonstrate normal courses and calibers. They join to form a normal appearing basilar artery. Soft tissues: Visualized neck soft tissues demonstrate no suspicious abnormalities. Bones: No suspicious bony lesions. Visualized cervical spine appears normally aligned. At least moderate cervical spine degenerative change can be seen. Sternotomy wires are partially seen. IMPRESSION: No significant intracranial arterial abnormality is seen. 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 Additional findings: Bxxuux-qi-Epuuyj developmental anomalies Cervical spine degenerative change Sternotomy wires ECG Data Attestation: I personally reviewed and interpreted this ECG as follows: Interpretation: Sinus rhythm Ventricular rate is 63 First-degree AV block [place] interval 2 and 4 milliseconds Left axis deviation No ST T wave changes MDM Narrative Medical decision making narrative: Currently patient is at baseline. He is alert and oriented x3. Is somewhat slow to answer some questions but does not have any dysarthria. No aphasia. He did ambulate here in the emergency department. During the time of the events he did not have any localizing weakness. No facial droop. No headache. I have low suspicion that this was a TIA. Low suspicion for CVA. Afebrile. His workup here in the emergency department is unremarkable. He has known right-sided coronary artery stenosis. They are seeing vascular surgery. He also has a neurologist that he sees for his vascular dementia. Will discharge patient home with instructions to contact his neurologist and also vascular surgeon. was at bedside for these discussions. They were given return precautions. They expressed understanding and agreement. Discharge Plan Departure Patient Disposition: Home Clinical Impression: Transient confusion Activity Restrictions/Additional Instructions: Continue to take all of your medications as directed. I would also recommend that you contact your neurologist and also the vascular surgeon to discuss further evaluation. Return to the emergency department for new symptoms. Prescriptions: No Action atorvastatin [Lipitor] 40 MG tablet 40 mg PO DAILY Qty: 0 MULTIVITAMIN/MINERALS (ICAPS PLUS) 1 tab PO QDAY Qty: 0 polyethylene glycol 3350 [Miralax] 17 GM powder in packet 17 gm PO QDAYP PRN (Reason: Constipation) Qty: 0 lisinopril 10 mg tablet 10 mg PO BID Qty: 0 loperamide [Imodium A-D] 2 mg capsule 2 mg PO Q6H PRN (Reason: loose stool) Qty: 14 0RF metoprolol succinate 50 mg tablet extended release 24 hr 50 mg PO BID nitroglycerin 0.4 mg tablet, sublingual 0.4 mg sublingual PRN PRN (Reason: Chest Pain) aspirin 81 MG tablet,chewable 81 mg PO QDAY Qty: 2 0RF Referrals: Mayco Burrell MD [Primary Care Provider] - Stand Alone Forms: Patient Portal/API
== END 2023-08-01 21:13 | disposition home or self-care (01) ==
PROVIDERS: Emergency Medicine; Emergency Provider Emergency Medicine; PCP Family Medicine
DX: R41.0 Disorientation, unspecified (principal); Z79.899 Other long term (current) drug therapy
CPT/HCPCS: 36415; 70450; 70496; 70498; 71045; 80053; 81003; 82550; 83605; 83690; 83880; 84145; 84484; 85025; 85610; 85730; 87040; 93005; 99283; 99284

== ENCOUNTER → 2023-11-10 07:08 | Outpatient (CLI) | payer MEDICARE, OTHER, SELFPAY ==
[2019-08-14 22:04] VITALS: BMI 29.7
--- NOTE | 2023-11-10 07:09 | DI.US.S_ITS ---
PROCEDURE: US ABDOMEN COMPLETE INDICATIONS: Splenomegaly, not elsewhere classified TECHNIQUE: Real-time scanning was performed of the abdominal and retroperitoneal organs, with image documentation. COMPARISON: None. FINDINGS: Liver: Liver is normal in size and increased in echotexture. Gallbladder: No stones. Wall thickness is normal measuring 1.6 mm. Biliary ducts: Intrahepatic bile ducts are non-dilated. Extrahepatic bile duct caliber measures 4.2 mm. Normal is 6-7 mm or less in diameter, or 10 mm or less post-cholecystectomy. Pancreas: Visualized portions of the pancreas are sonographically normal. Spleen: Spleen is normal in size and homogeneous in echotexture. Kidneys: Kidneys are normal in size and echotexture. Right kidney measures 11.1 cm long; left kidney measures 12.1 cm long. No hydronephrosis or nephrolithiasis. No solid masses. Simple left parapelvic cysts measuring 1.6 x 1.7 x 1.4 cm. Aorta: Visualized aorta is normal in caliber at less than 3 cm. Iliacs: Proximal common iliac arteries are normal in caliber at less than 2.5 cm. IVC: Intrahepatic inferior vena cava is patent. Miscellaneous: No free abdominal fluid. IMPRESSION: Mild hepatic steatosis. Dictated by: Martine Raymond M.D. on 11/10/2023 at 12:13 Approved by: Martine Raymond M.D. on 11/10/2023 at 12:14
== END ==
LOC: US 07:09
PROVIDERS: PCP Family Medicine; Referring Provider Family Medicine; Visit Provider Family Medicine
DX: K76.0 Fatty (change of) liver, not elsewhere classified (principal); R16.1 Splenomegaly, not elsewhere classified
CPT/HCPCS: 76700

== ENCOUNTER 2024-10-04 08:07 | Emergency (ER) | payer MEDICARE, OTHER, SELFPAY ==
[2019-08-14 22:04] VITALS: BMI 29.7
[2024-10-04] VITALS (19 sets, daily range): BP systolic 120–192; BP diastolic 60–93; PULSE 62–75; RESP 17–24; TEMP 37; O2SAT 95–100; BMI 29.7
--- NOTE | 2024-10-04 08:18 | DI.CT.S_ITS ---
PROCEDURE: CT STROKE INDICATIONS: Positive BE-FAST, Stroke symptoms TECHNIQUE: Noncontrast 4.5 mm thick angled axial sections acquired from the foramen magnum to the vertex, with coronal reformats. For radiation dose reduction, the following was used: automated exposure control, adjustment of mA and/or kV according to patient size. COMPARISON: [facility], CT, CT STROKE, 08/14/2019, 17:22. FINDINGS: Image quality: Diagnostic. CSF spaces: Basal cisterns are patent. No extra-axial fluid collections. Interval increase in ventriculomegaly. This is seen when comparing current axial image 20 to previous axial images 18 and 17. Brain: No intracranial bleeds or mass effect. There is cerebral volume loss, with resultant ventricular and sulcal prominence. There are progressive, severe periventricular and deep white matter hypodensities, potentially representing subependymal resorption of fluid plus underlying small vessel ischemic change. There is intracranial internal carotid artery atherosclerosis. Skull and face: Calvarium and visualized facial bones appear intact, without suspicious lesions. Sinuses: Visualized sinuses and mastoids are clear. IMPRESSION: No acute stroke or hemorrhage identified. Increasing ventriculomegaly with increasing periventricular deep white matter hypodensities, potentially representing NPH superimposed on severe small vessel ischemic change. Recommend clinical correlation. Also recommend consideration of MRI. Comment: Findings were discussed with Dr. Horan on 10/04/2024 at 0851 hours This study fulfills neurological imaging criteria for inclusion or exclusion of acute stroke therapies based on available published neurological guidelines. Dictated by: Ocatvio Norris M.D. on 10/04/2024 at 8:44 Approved by: Octavio Norris M.D. on 10/04/2024 at 8:54
--- NOTE | 2024-10-04 08:18 | DI.RAD.S_ITS ---
PROCEDURE: XR CHEST 1V INDICATIONS: Possible stroke TECHNIQUE: One view of the chest was acquired. COMPARISON: [facility], CR, XR CHEST 1V, 08/01/2023, 16:53. FINDINGS: Surgical changes and devices: Sternotomy wires and mediastinal clips are present. Lungs and pleura: Lungs are clear. No pleural effusions or pneumothorax. Mediastinum: Mediastinal contours appear normal. Heart size is normal. Bones and chest wall: No suspicious bony lesions. Overlying soft tissues appear unremarkable. IMPRESSION: No acute cardiopulmonary abnormality is seen. Approved by: Sherman Goncalves M.D. on 10/04/2024 at 9:06
--- NOTE | 2024-10-04 08:22 | DI.CT.S_ITS ---
PROCEDURE: CT ANGIO HEAD AND NECK INDICATIONS: r/o stroke TECHNIQUE: After the administration of intravenous contrast, 1 mm thick sections acquired from the aortic arch through the [place]. 3-dimensional khyzzpn-oyoardxjf-chcuftdmbq (MIP) and/or volume rendering reformats were acquired of the central intracranial vasculature and neck separately. For radiation dose reduction, the following was used: automated exposure control, adjustment of mA and/or kV according to patient size. COMPARISON: [facility], CT, CT CHEST W CON, 04/05/2023, 9:15. [facility], CT, CT STROKE, 10/04/2024, 8:30. [facility], CT, CT ANGIO HEAD AND NECK, 08/01/2023, 17:15. FINDINGS: Image quality: Diagnostic. BRAIN: Brain and CSF: Chronic microvascular ischemic changes. Ventriculomegaly out of proportion to the degree of sulcal enlargement can be seen in setting of normal pressure hydrocephalus. No extra-axial fluid collection. Skull and face: Calvarium and facial bones appear intact, without suspicious lesions. Orbits appear normal. Sinuses: Sinuses and mastoids are clear. HEAD CT ANGIOGRAPHY: Anterior circulation: Intracranial internal carotid arteries demonstrate atherosclerotic calcifications without significant stenosis.. The flow within the paired anterior cerebral arteries is normal and symmetric. The flow within the middle cerebral arteries is normal and symmetric. The anterior communicating artery is seen. No aneurysms are seen. Posterior circulation: Visualized portions of the vertebral arteries demonstrate normal caliber, and join to form a normal appearing basilar artery. Flow within the posterior cerebral arteries is normal and symmetric. No aneurysms are seen. NECK CT ANGIOGRAPHY: Carotid system: The great vessels demonstrate a conventional anatomy as they arise from the aortic arch. The origins of the common carotid arteries appear patent. The common carotid arteries demonstrate normal caliber and courses. Atherosclerotic plaque is seen at the carotid bifurcations bilaterally resulting in severe narrowing of the proximal internal carotid arteries similar to the CT from 08/01/2023. The internal carotid arteries demonstrate normal calibers and courses. Posterior circulation: The origins of the vertebral arteries both appear widely patent. The more superior extracranial portions of both vertebral arteries also demonstrate normal courses and calibers. They join to form a normal appearing basilar artery. Soft tissues: Visualized neck soft tissues demonstrate no suspicious abnormalities. Stable right upper lobe 8 mm average diameter nodule is partially included and has not significantly changed in size when compared to the chest CT from 04/05/2023. Bones: No suspicious bony lesions. Multilevel degenerative changes in the included spine. IMPRESSION: No significant intracranial arterial abnormality is seen. Severe narrowing of the proximal internal carotid arteries bilaterally at the carotid bifurcations. Any quantitative measurements of stenosis were performed using NASCET criteria. Approved by: Sherman Goncalves M.D. on 10/04/2024 at 9:15
--- NOTE | 2024-10-04 08:36 | ED_ITS ---
HPI - Neuro Symptoms/Deficit General Chief Complaint: Neuro Symptoms/Deficit Stated Complaint: Right hand numbness/tingling, buzzing in head Time Seen by Provider: 10/04/24 08:17 Source: patient, RN notes reviewed and old records reviewed Mode of arrival: Ambulatory Limitations: no limitations History of Present Illness HPI Narrative: This is a 74-year-old male with history of coronary artery disease prior three- vessel CABG and cardiac stent on aspirin daily, hypertension, dyslipidemia, vascular dementia who presents with complaint of buzzing in his head, right hand numbness and tingling. Patient states his right arm does get numb and tingling intermittently this happens frequently did not go away as quickly as normal. He states he has a buzzing in his head. He states it is not a pain, he denies tinnitus type symptoms he just feels there is something different or off. He notes that he has dementia at baseline and that he sometimes has this feeling on and off as well. He denies any numbness tingling or weakness elsewhere. Neither he nor his family noticed any change to gait or movement. He does sometimes has a little bit of expressive aphasia on and off which they relate to his dementia particularly in telling stories. They note that his speech is baseline currently. No chest pain, noted he seemed to be taking a little bit deeper breaths this morning. No nausea or vomiting. No other GI or urinary symptoms. No incontinence. Both and daughter note that he seemed more anxious this morning and he has been a little bit more emotionally labile his dementia has progressed. Patient takes lisinopril, metoprolol, atorvastatin aspirin 81 mg 2 tablets in the morning and 81 mg in the evening. Patient has had a prior three-vessel CABG followed by a cardiac stent. No other surgeries. No reported drug allergies. No tobacco, no alcohol, no recreational drugs. Dr. Burrell is his primary care physician. He follows with Dr. Joya for Cardiology through [facility] in [place]. He also follows with Neurology. On Anticoagulants: No (ASA) Related Data Home Medications Medication Instructions Recorded Confirmed MULTIVITAMIN/MINERALS (ICAPS PLUS) 1 tab PO QDAY ##0 06/25/16 08/15/19 atorvastatin 40 mg tablet (Lipitor) 40 mg PO DAILY ##0 06/25/16 08/14/19 lisinopril 10 mg tablet 10 mg PO BID #0 tabs 10/17/18 03/11/20 metoprolol succinate 50 mg 50 mg PO BID 08/14/19 08/14/19 tablet,extended release 24 hr nitroglycerin 0.4 mg sublingual 0.4 mg sublingual PRN PRN Chest 08/14/19 08/14/19 tablet Pain Previous Rx's Medication Instructions Recorded aspirin 81 mg chewable tablet 81 mg PO QDAY #2 tabs 08/15/19 Allergies Allergy/AdvReac Type Severity Reaction Status Date / Time No Known Drug Intolerances Allergy Verified 10/16/23 09:10 latex AdvReac itching, Verified 10/16/23 09:10 redness Review of Systems Review of Systems ROS Unobtainable: All systems reviewed & are unremarkable except as noted in HPI and below Hematologic/Lymphatic On Anticoagulants: No (ASA) Patient History Medical History (Updated 10/04/24 @ 14:26 by Peg Horan DO) Elevated cholesterol Hypertension History of herniated intervertebral disc Coronary heart disease Surgical History History of heart artery stent Status post aorto-coronary artery bypass graft Social History marital status: household members: spouse occupational status: employed Smoking Status: Never smoker alcohol intake: current substance use type: does not use Smoking Status: Never smoker alcohol intake frequency: a few times a week Alcohol type: beer Exam Narrative Exam Narrative: GEN: well nourished, well appearing 3, alert and oriented x 3, patient appears to be in mild distress. HEENT: Atraumatic, pupils are equal round reactive to light, extraocular movements are intact, nares are clear, TMs are clear with no fluid, there is no conjunctival pallor. Throat is clear without any exudates, erythema, tonsillar enlargement or uvular deviation, no facial droop HEART: Regular rate and rhythm without murmur, clicks, rubs. No carotid bruits, pulses are equal in upper and lower extremities LUNGS:Lungs clear to auscultation, no wheezes, rales, crackles, chest moves symmetrically ABD:bowel sounds normal, soft, non-tender, no guarding, rebound, rigidity, no masses noted, no hepatosplenomegaly :No CVA tenderness MSCL: Non-tender, no muscle atrophy, muscles strength 5/5 upper and lower extremities, full range of motion. NEURO:CN 2-12 intact, sensation normal, finger nose finger test normal, heel briones test normal, romberg normal Initial Vital Signs Initial Vital Signs: Vital Signs Temperature 98.6 F 10/04/24 08:13 Pulse Rate 75 10/04/24 08:13 Respiratory Rate 20 10/04/24 08:13 Blood Pressure 183/81 H 10/04/24 08:13 Pulse Oximetry 100 10/04/24 08:13 Oxygen Delivery Method Room Air 10/04/24 08:13 Scores NIH Stroke Scale Level of Conciousness: Alert, keenly responsive Ask month/age: Answers both questions correctly. Open/close eyes, close hand: Performs both tasks correctly Best gaze horizontal: Normal Visual garrett: No visual loss Facial palsy: Normal symetrical movement Left arm drift: No drift for full 10 sec Right arm drift: No drift for full 10 sec Left leg drift: No drift for full 5 sec Right leg drift: No drift for full 5 sec Limb ataxia: Absent Sensory on face/arms/legs: Normal, no sensory loss Best language: Mild to moderate, slurs some words (missed hammock, no other issues with language noted. ) Dysarthria: Normal Extinction or inattention: No abnormality Total NIH Stroke scale score: 1 Course Orders Ordered: Discontinued Medications Ondansetron HCl (Ondansetron 4 Mg/2 Ml Inj) 4 mg IV NOW PRN PRN Reason: Nausea And Vomiting Ondansetron HCl (Ondansetron 4 Mg Odt) 4 mg SL NOW PRN PRN Reason: Nausea And Vomiting Vital Signs Vital signs: Vital Signs - 8 hr 10/04/24 10:48 10/04/24 10:48 10/04/24 11:00 Temperature Pulse Rate 62 Respiratory Rate 21 Blood Pressure 156/79 H 145/73 H Pulse Oximetry 95 Oxygen Delivery Method 10/04/24 11:00 10/04/24 11:30 10/04/24 11:30 Temperature Pulse Rate 64 68 Respiratory Rate 21 19 Blood Pressure 141/74 H Pulse Oximetry 99 98 Oxygen Delivery Method 10/04/24 12:00 10/04/24 12:01 10/04/24 12:01 Temperature Pulse Rate 73 72 Respiratory Rate 23 23 Blood Pressure 150/93 H Pulse Oximetry Oxygen Delivery Method 10/04/24 12:30 10/04/24 13:00 10/04/24 13:30 Temperature Pulse Rate 67 68 65 Respiratory Rate 19 19 19 Blood Pressure 135/65 125/66 128/64 Pulse Oximetry 97 97 96 Oxygen Delivery Method 10/04/24 14:22 10/04/24 14:40 Temperature 98.6 F Pulse Rate 63 65 Respiratory Rate 20 Blood Pressure 131/60 131/60 Pulse Oximetry 96 100 Oxygen Delivery Method Room Air Room Air MDM - Neuro Symptoms/Deficit Lab Data 10/04/24 08:34 10/04/24 08:34 Labs: Lab Results 10/04/24 Range/Units 08:34 WBC 6.1 (4.5-11.0) X10^3/uL RBC 4.69 (4.5-5.9) X10^6/uL Hgb 16.2 (13.5-17.5) g/dL Hct 46.6 (41-53) % MCV 99.3 (80-100) fL MCH 34.5 H (26-34) PG MCHC 34.7 (30-36) % RDW 13.0 (11.6-14.8) % Plt Count 139 L (150-400) X10^3/uL Neut % (Auto) 59.4 (50-75) % Lymph % (Auto) 25.4 (25-40) % [place] % (Auto) 13.0 (3-14) % Eos % (Auto) 1.7 L (2-4) % Baso % (Auto) 0.5 (0-2) % Neut # (Auto) 3600 (1944-0764) /uL Lymph # (Auto) 1600 (9553-3304) /uL [place] # (Auto) 800 (0-900) /uL Eos # (Auto) 100 (0-450) /uL Baso # (Auto) 0 (0-100) /uL PT 11.9 (9.4-12.5) SECONDS INR 1.1 (0.9-1.3) APTT 36 (25.1-36.5) SECONDS Sodium 134 L (137-145) mmol/L Potassium 4.1 (3.4-5.1) mmol/L Chloride 100 (98-107) mmol/L Carbon Dioxide 28 (22-32) mmol/L BUN 14 (9-20) mg/dL Creatinine 0.81 (0.66-1.25) mg/dL Estimated GFR > 60 (>60) mL/min BUN/Creatinine Ratio 17.3 (6-22) Glucose 81 (70-99) mg/dL Calcium 9.1 (8.4-10.2) mg/dL Magnesium 1.8 (1.6-2.3) mg/dL Total Bilirubin 0.7 (0.2-1.3) mg/dL AST 35 (17-59) IU/L ALT 35 (<50) IU/L Alkaline Phosphatase 87 (38-126) U/L Total Creatine Kinase 110 (55-170) U/L Troponin I < 0.012 (0.01-0.034) ng/mL Total Protein 6.8 (6.3-8.2) g/dL Albumin 4.2 (3.5-5.0) g/dL Globulin 2.6 (1.7-4.1) g/dL Albumin/Globulin Ratio 1.6 (1.0-2.8) Point of Care Testing Glucose POC 106 Urine Dip Bedside Urine Glucose Negative Bedside Urine Bilirubin - Negative Bedside Urine Ketone - Negative Urine Specific [place] 1.005 Bedside Urine Occult Blood - Negative Bedside Urine pH 7.0 Bedside Urine Protein - Negative Bedside Urine Urobilinogen - Negative Bedside Urine Nitrite - Negative Bedside Urine Leukocytes - Negative Esterase ECG Data Attestation: I personally reviewed and interpreted this ECG as follows: Interpretation: Sinus rhythm first-degree AV block with premature VC. Left axis deviation rate of 68, NM 216 QRS of 126 QTC of 427. Patient was prior from 08/01/2023 sinus rhythm with first-degree AV block. [facility] Narrative Medical decision making narrative: 74-year-old male presents with buzzing sensation in his had some right hand and numbness and tingling little bit of difficulty with speech although this sounds like is somewhat baseline from his dementia. Patient has had these symptoms on and off in the past family noted he was more anxious this morning. They do not actually appreciate any changes to his speech, patient's NIH is technically 1 because he had difficulty with a Hammock on the NIH scale but had no other issues and has clear speech. He does occasionally have to think a little bit. Labs show normal white count hemoglobin, thrombocytopenia with platelets of 139 fairly consistent with priors through 2019. Coags are negative sodium is 134 electrolytes BUN creatinine otherwise appropriate, troponins less than 0.012. Chest x-ray shows no acute change. Head CT shows no acute stroke or hemorrhage, increasing ventriculomegaly with increased periventricular deep white matter hypodensities potentially representing mph superimposed on severe small-vessel ischemic change. Recommend clinical correlation also recommend consider MR. CT head and neck angio shows no significant intracranial arterial abnormality seen severe narrowing of the proximal ICA carotid arteries bilaterally at the carotid bifurcations, similar to CT from 08/01/2023. Patient has stable right upper lobe 8 mm nodule in the soft tissue of the neck has not changed when compared to chest CT from April of 2023. MR brain shows no acute intracranial hemorrhage or recent infarct, chronic microvascular ischemic changes in generalized parenchymal volume loss. Ventricular is mildly distortion it to the degree of sulcal enlargement and normal pressure hydrocephalus is not excluded. Discussed with patient and family, he was fairly nonspecific changes today they have resolved. Unclear if possible TIA as they appreciated more anxiety than other changes and patient notes a frequent numbness in his right arm that resolves in the morning as well as the buzzing sensation in his head that resolves in the morning. Discussed if they would like to proceed with MR here in the department can also speak with their primary care Dr. Burrell. Patient's family elect to proceed with MR here in the department we will be available till 2:30 p.m.. They do not wish for observation at this time. They note he has seen Neurology but it has been some time. Spoke with patient and family, he is at his baseline currently, we will have him follow up with primary care and their neurology team for further evaluation for possible normal pressure hydrocephalus. They follow with Dr. Alegria, images for patient's MR were pushed to [facility] in [place]. [address] Burrell, patient's primary care physician who agrees with plan he will follow up with him in the next week and helped him and family to navigate next steps. Discharge Plan Departure Patient Disposition: Home Clinical Impression: Paresthesia of arm Activity Restrictions/Additional Instructions: Follow up with your physician, I would also recommend following up with your neurologist. Your workup today does show some ventriculomegaly or enlargement of the areas of fluid in your brain this can sometimes be related to something called normal pressure hydrocephalus. Talk with your physician about further evaluation as this can contribute to memory issues. You do have quite a bit of narrowing at the proximal internal carotid arteries but sounds like you are already pursuing appropriate follow up with your physician and vascular surgery. Continue your home medications as prescribed. Prescriptions: No Action atorvastatin [Lipitor] 40 MG tablet 40 mg PO DAILY Qty: 0 MULTIVITAMIN/MINERALS (ICAPS PLUS) 1 tab PO QDAY Qty: 0 lisinopril 10 mg tablet 10 mg PO BID Qty: 0 metoprolol succinate 50 mg tablet extended release 24 hr 50 mg PO BID nitroglycerin 0.4 mg tablet, sublingual 0.4 mg sublingual PRN PRN (Reason: Chest Pain) aspirin 81 MG tablet,chewable 81 mg PO QDAY Qty: 2 0RF Referrals: Mayco Burrell MD [Primary Care Provider] - Stand Alone Forms: Patient Portal/API/Survey
[2024-10-04 08:41] LABS: Add Manual Diff / Slide Review NO; Basophils Absolute Auto 0 /uL (0-100); Basophils Percent Auto 0.5 % (0-2); Eosinophils Absolute Auto 100 /uL (0-450); Eosinophils Percent Auto 1.7 % (2-4); Hematocrit 46.6 % (41-53); Hemoglobin 16.2 g/dL (13.5-17.5); Lymphocytes Absolute Auto 1600 /uL (1100-4500); Lymphocytes Percent Auto 25.4 % (25-40); Mean Corpuscular HGB Conc 34.7 % (30-36); Mean Corpuscular Hemoglobin 34.5 PG (26-34); Mean Corpuscular Volume 99.3 fL (80-100); Monocytes Absolute Auto 800 /uL (0-900); Neutrophils Absolute Auto 3600 /uL (1500-7000); Neutrophils Percent Auto 59.4 % (50-75); Platelet Count 139 X10^3/uL (150-400); Red Blood Cell Count 4.69 X10^6/uL (4.5-5.9); White Blood Cell Count 6.1 X10^3/uL (4.5-11.0)
[2024-10-04 08:49] LABS: INR 1.1 (0.9-1.3); Prothrombin Time 11.9 SECONDS (9.4-12.5)
[2024-10-04 08:51] LABS: PTT Partial Thromboplastin Tim 36 SECONDS (25.1-36.5)
[2024-10-04 08:55] LABS: Alanine Aminotransferase 35 IU/L (<50); Albumin 4.2 g/dL (3.5-5.0); Albumin Globulin Ratio 1.6 (1.0-2.8); Alkaline Phosphatase 87 U/L (38-126); Aspartate Aminotransferase 35 IU/L (17-59); BUN Creatinine Ratio 17.3 (6-22); Bilirubin Total 0.7 mg/dL (0.2-1.3); Blood Urea Nitrogen 14 mg/dL (9-20); Calcium 9.1 mg/dL (8.4-10.2); Carbon Dioxide 28 mmol/L (22-32); Chloride 100 mmol/L (98-107); Creatine Kinase 110 U/L (55-170); Estimated Glomerular Filt Rate > 60 mL/min (>60); Globulin 2.6 g/dL (1.7-4.1); Glucose 81 mg/dL (70-99); HEMOLYSIS 16 (0-50); Magnesium 1.8 mg/dL (1.6-2.3); Potassium 4.1 mmol/L (3.4-5.1); Sodium 134 mmol/L (137-145); Total Protein 6.8 g/dL (6.3-8.2)
--- NOTE | 2024-10-04 08:56 | EKG_ITS ---
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
[2024-10-04 09:06] LABS: Troponin I < 0.012 ng/mL (0.01-0.034)
--- NOTE | 2024-10-04 09:18 | PC.NURSE ---
Pt alert and answers all questions appropriately. and daughter report that pt has hx of dementia. Pt is slow to find correct words. States that left arm numbness and tingling is resolving. Dr Horan updated regarding pt status.
--- NOTE | 2024-10-04 09:40 | DI.MRI.S_ITS ---
PROCEDURE: MR HEAD/BRAIN WO CON INDICATIONS: R hand numbness/buzzing head, hx vascular dementia TECHNIQUE: Non-contrast axial T1 spin echo, axial T2 fast spin echo, sagittal and axial FLAIR, coronal T2 fast spin echo, axial gradient echo, axial diffusion and ADC through the brain. COMPARISON: [facility], CT, CT ANGIO HEAD AND NECK, 10/04/2024, 8:30. [facility], MR, MR HEAD/BRAIN WO CON, 08/11/2021, 11:53. [facility], CT, CT STROKE, 10/04/2024, 8:30. FINDINGS: Image quality: Excellent. CSF spaces: Ventricles appear symmetric in size and shape. Basal cisterns are patent. No extra-axial fluid collections. Brain: No acute intracranial hemorrhage or mass effect. There is cerebral volume loss for age. There are moderate to severe periventricular and deep white matter chronic small vessel ischemic changes. Brainstem appears normal. Diffusion-weighted images show no acute infarct. No chronic ischemic insults. Normal intravascular flow voids are present. Skull and face: Calvarial bone marrow is normal in signal. Orbits are normal. Sinuses: Sinuses and mastoids are clear. IMPRESSION: 1. No acute intracranial hemorrhage or recent infarct. 2. Chronic microvascular ischemic changes and generalized parenchymal volume loss. 3. Ventriculomegaly is mildly disproportionate to the degree of sulcal enlargement, and normal pressure hydrocephalus is not excluded. Approved by: Sherman Goncalves M.D. on 10/04/2024 at 14:16
== END 2024-10-04 14:41 | disposition home or self-care (01) ==
PROVIDERS: Emergency Provider Emergency Medicine; PCP Family Medicine
DX: R20.0 Anesthesia of skin (principal); R44.8 Other symptoms and signs involving general sensations and perceptions; F01.54 Vascular dementia, unspecified severity, with anxiety; I10 Essential (primary) hypertension; I25.10 Atherosclerotic heart disease of native coronary artery without angina pectoris; R29.701 NIHSS score 1; Z95.1 Presence of aortocoronary bypass graft; Z95.5 Presence of coronary angioplasty implant and graft; Z79.82 Long term (current) use of aspirin
CPT/HCPCS: 70450; 70496; 70498; 70551; 71045; 80053; 81003; 82550; 82962; 83735; 84484; 85025; 85610; 85730; 93005; 99284